=== PATIENT | male | born 1970 | race Caucasian/White ===

== ENCOUNTER → 2016-06-30 | Outpatient (CLI) | payer BC ==
[~2016-06-30] MED LIST: ACET-1256 PO; CETI10TA84 PO; DICY20TA35 PO; DIPH-437 PO; DOCU1TAB6 PO; LORA-741 PO; MAGN400T6 PO; OMEP40CA41 PO; ONDA8TAB12 PO; PROC1TAB5 PO; SIMV10TA2 PO; TADA5TAB11 PO
[2016-06-30 10:45] LABS: ALT/SGPT 45 U/L (12-78); BLOOD UREA NITROGEN 18 mg/dl (7-18); CALCIUM 9.6 mg/dl (8.5-10.1); CARBON DIOXIDE 27 mmol/L (21-32); CHLORIDE 105 mmol/L (98-107); CHOLESTEROL 208 mg/dl (0-200); GLUCOSE 97 mg/dl (70-99); POTASSIUM 4.5 mmol/L (3.5-5.1); SODIUM 143 mmol/L (136-145)
[2016-06-30 10:48] LABS: ALB/GLOB RATIO 1.4 (0.9-2); ALKALINE PHOSPHATASE 77 U/L (45-117); AST/SGOT 34 U/L (15-37); CHOLESTEROL/HDL RATIO 5.8; HDL CHOLESTEROL 36 mg/dl; LDL CHOLESTEROL CALCULATED 124 mg/dl; TRIGLYCERIDES 240 mg/dl (0-150); VERY LOW DENSITY LIPOPROT CALC 48 mg/dl
== END | disposition home or self-care (01) ==
LOC: C.LAB 09:15
PROVIDERS: ATTEND Nurse Practitioner Family
DX: E78.5 Hyperlipidemia, unspecified (principal)

== ENCOUNTER → 2016-08-29 | Outpatient (CLI) | payer BC ==
--- NOTE | 2016-08-29 12:20 | DIAGNOSTIC IMAGING REPORT ---
ABDOMEN AND PELVIS CT WITH IV AND ORAL CONTRAST CT DOSE: 839.40 mGy.cm HISTORY: Testicular carcinoma TESTICULAR CANCER TECHNIQUE: Multiaxial CT images of the abdomen and pelvis were performed following the use of intravenous and oral contrast. COMPARISON STUDY: 06/07/2016 FINDINGS: Lung bases remain clear. Liver remains uniform. Gallstones are again noted to be present within the gallbladder lumen and a clinically region of the cystic duct. Pancreas is uniform throughout. Spleen is uniform. Kidneys demonstrate several small cortical cysts bilaterally. These are unchanged. No significant adenopathy within the abdominal pelvic or inguinal regions. Mild rectal fecal impaction. Mild increase in colonic fecal load primarily within the sigmoid. Several small nodes are present these are now considered clinically significant and are unchanged. Survey evaluation of the osseous structures shows a small cortical bone cyst anterior margin of the right femoral neck. This is unchanged from the prior study. IMPRESSION: 1. No acute process of the abdomen or pelvis. 2. No evidence for metastatic disease. 3. No change from the prior study. 4. Gallstones. 5. In several note is made of increased fecal load within the sigmoid colon and rectum Electronically signed by: Roberto Lauren M.D. 08/29/2016 12:19 PM Dictated Date/Time: 08/29/2016 12:14 PM
--- NOTE | 2016-08-29 12:28 | DIAGNOSTIC IMAGING REPORT ---
CHEST CT WITH CONTRAST CT DOSE: HISTORY: TESTICULAR CANCER TECHNIQUE: Multiaxial CT images of the chest were performed following the intravenous administration of contrast. COMPARISON: Chest CT 06/07/2016. FINDINGS: The central airways are patent. No pleural effusions. No pneumothorax. Stable 6 mm subpleural nodule abutting the right minor fissure on image 35. This is likely benign. No new or suspicious pulmonary nodules identified. No focal lung consolidations. No suspicious lytic or blastic osseous lesions. Cholelithiasis. No hepatic or splenic masses. Normal adrenal glands. No mediastinal hilar lymphadenopathy. IMPRESSION: No change from the prior study. No evidence for metastatic disease within the chest. Electronically signed by: Rosendo Thornton M.D. 08/29/2016 12:26 PM Dictated Date/Time: 08/29/2016 12:23 PM
--- NOTE | 2016-08-29 13:02 | DIAGNOSTIC IMAGING REPORT ---
TESTICULAR ULTRASOUND HISTORY: Testicular carcinoma TESTICULAR CANCER COMPARISON: 10/29/2015 FINDINGS: Right testis: Surgically absent Left testis: Maximum dimension 3.7 cm. Several testicular calcifications unchanged. Normal vascular flow. Stable left-sided varicocele. IMPRESSION: Stable evaluation of the left testis. Stable left-sided varicocele. Surgically absent right testis Electronically signed by: Roberto Lauren M.D. 08/29/2016 1:01 PM Dictated Date/Time: 08/29/2016 12:46 PM
== END | disposition home or self-care (01) ==
LOC: C.CTS 11:50
PROVIDERS: ATTEND Nurse Practitioner
DX: C82.11 Follicular lymphoma grade II, lymph nodes of head, face, and neck (principal); K80.20 Calculus of gallbladder without cholecystitis without obstruction; I86.1 Scrotal varices; Z90.79 Acquired absence of other genital organ(s)

== ENCOUNTER → 2016-11-22 | Outpatient (CLI) | payer BC ==
[2016-11-22 13:36] LABS: ALT/SGPT 43 U/L (12-78); AMYLASE 64 U/L (25-115); AST/SGOT 19 U/L (15-37); BLOOD UREA NITROGEN 11 mg/dl (7-18); BUN/CREATININE RATIO 12.3 (10-20); CALCIUM 9.1 mg/dl (8.5-10.1); CARBON DIOXIDE 29 mmol/L (21-32); CHLORIDE 107 mmol/L (98-107); CREATININE 0.91 mg/dl (0.60-1.40); GLUCOSE 89 mg/dl (70-99); POTASSIUM 3.9 mmol/L (3.5-5.1); SODIUM 142 mmol/L (136-145)
[2016-11-22 13:39] LABS: ALB/GLOB RATIO 1.2 (0.9-2); ALKALINE PHOSPHATASE 81 U/L (45-117)
== END | disposition home or self-care (01) ==
LOC: C.LAB 11:22
PROVIDERS: ATTEND Nurse Practitioner Family
DX: R10.9 Unspecified abdominal pain (principal)

== ENCOUNTER → 2016-12-21 | Day surgery (SDC) | payer BC ==
[2016-12-14 12:59] VITALS: BMI 27.0
[~2016-12-21] VITALS: Ht 182.9 cm; Wt 90.9 kg
[~2016-12-21] MED LIST changes: -DOCU1TAB6 PO; +LIDOCAINE HCL 2% 2 ML VIAL (20MG/ML) ONE; -LORA-741 PO; -ONDA8TAB12 PO; -PROC1TAB5 PO; +PROPOFOL IV EMULSION 10 MG/ML 20 ML VIAL IV ONE; +SODIUM CHLORIDE 0.9% 500ML 500 ML IV ONE
[2016-12-21 12:23] VITALS: Ht 182.9 cm; Wt 90.9 kg
--- NOTE | 2016-12-21 13:09 | Endo History and Physical ---
History & Physical Date of Service: Dec 21, 2016. Chief Complaint: ABDOMINAL PAIN Referring Physician: JAYCEE MESSINA NP History of Present Illness 46 yo CM who presents for colonoscopy secondary to abdominal pain. Past Surgical History Hx Cardiac Surgery: No Hx Internal Defibrillator: No Hx Pacemaker: No Hx Abdominal Surgery: No Hx of Implantable Prosthesis: No Hx Post-Op Nausea and Vomiting: No Hx Cancer Surgery: Yes (ORCHIECTOMY) Hx Thoracic Surgery: No Hx Orthopedic: No Hx Urinary Tract Surgery: No Family History None Social History Smoking Status: Never Smoker Hx Substance Use: No Hx Alcohol Use: Yes (NOT RECENTLY D/T DIGESTIVE PROBLEMS, VERY RARELY) Allergies Coded Allergies: Dairy (Verified Allergy, Intermediate, DIGESTIVE ISSUES, 12/21/16) NO KNOWN DRUG ALLERGIES (Verified Allergy, Unknown, ., 12/14/16) Current Medications Reported Home Medications Medications Dose Route/Sig Max Daily Dose Days Date Category Mag-Ox (Magnesium Oxide) 400 Mg Tab 400 Mg PO DAILY 12/21/16 Reported Zyrtec (Cetirizine HCl) 10 Mg Tab 10 Mg PO DAILY PRN 12/14/16 Reported Zocor (Simvastatin) 10 Mg Tab 10 Mg PO QPM 12/14/16 Reported Prilosec (Omeprazole) 40 Mg Cap 40 Mg PO QAM 12/14/16 Reported Cialis (Tadalafil) 5 Mg Tab 5 Mg PO UD PRN 12/28/12 Reported Bentyl (Dicyclomine Hcl) 20 Mg Tab 20 Mg PO QID PRN 01/10/12 Reported Vital Signs Weight (Kilograms): 90.91 Height (Feet): 6 Height (Inches): 0 Date Time Temp Pulse Resp B/P (MAP) Pulse Ox O2 Delivery O2 Flow Rate FiO2 12/21/16 12:22 36.8 83 20 131/74 (93) 96 Room Air Physical Exam General Appearance: WD/WN, no apparent distress Respiratory/Chest: Auscultation: breath sounds normal Cardiovascular: Heart Auscultation: RRR Abdomen: Bowel Sounds: normal Inspection & Palpation: soft, non-distended, no tenderness, guarding & rebound Assessment and Plan Assessment: 46 yo CM who presents for colonoscopy secondary to abdominal pain. Plan: Proceed with colonoscopy.
--- NOTE | 2016-12-21 13:44 | Discharge Instructions ---
Endoscopy Patient Instructions Date / Procedure(s) Performed Dec 21, 2016. Colonoscopy Allergy Information Coded Allergies: Dairy (Verified Allergy, Intermediate, DIGESTIVE ISSUES, 12/21/16) NO KNOWN DRUG ALLERGIES (Verified Allergy, Unknown, ., 12/14/16) Discharge Date / Findings Dec 21, 2016. Internal hemorrhoids Random colon biopsies Medication Instructions OK to resume all medications today as prescribed Reported Home Medications Medications Dose Route/Sig Max Daily Dose Days Date Category Mag-Ox (Magnesium Oxide) 400 Mg Tab 400 Mg PO DAILY 12/21/16 Reported Zyrtec (Cetirizine HCl) 10 Mg Tab 10 Mg PO DAILY PRN 12/14/16 Reported Zocor (Simvastatin) 10 Mg Tab 10 Mg PO QPM 12/14/16 Reported Prilosec (Omeprazole) 40 Mg Cap 40 Mg PO QAM 12/14/16 Reported Cialis (Tadalafil) 5 Mg Tab 5 Mg PO UD PRN 12/28/12 Reported Bentyl (Dicyclomine Hcl) 20 Mg Tab 20 Mg PO QID PRN 01/10/12 Reported Provider Instructions Activity Restrictions - No exercising or heavy lifting for 24 hours. - Do not drink alcohol the day of the procedure. - Do not drive a car or operate machinery until the day after the procedure. - Do not make any important decisions or sign important papers in 24 hours after the procedure. Following Day: - Return to full activity which may include returning to work/school. Diet Start your diet with liquids and light foods (jello, soup, juice, toast). Then eat your usual diet if not nauseated. Treatment For Common After Affects For mild abdominal pain, bloating, or excessive gas: - Rest - Eat lightly - Lie on right side Follow-Up Information Follow-up with JAYCEE MESSINA NP as scheduled Anesthesia Information What You Should Know You have had a procedure that required some medicine to reduce anxiety and discomfort. This treatment is called moderate sedation. After receiving the treatment, you may be sleepy, but you will be able to breathe on your own. The effects of the treatment may last for several hours. Follow these instructions along with Activity/Diet recommendations noted above: * Do NOT do anything where dizziness or clumsiness would be dangerous. * Rest quietly at home today, then you can be up and about tomorrow. * Have a responsible person stay with you the rest of today. * You may have had an I.V. today. If so, you may take the dressing off later today. Recommendations Call your doctor if: * Trouble breathing * Continuous vomiting for more than 24 hours * Temperature above 101 degrees * Severe abdominal pain or bloating * Pain not relieved by pain medicine ordered * There is increased drainage or redness from any incision * A large amount of rectal bleeding greater than 2-3 tablespoons. (If you had a polyp/s removed or have hemorrhoids, a small amount of blood - from the rectum is to be expected.) * You have any unanswered questions or concerns. IN THE EVENT OF A SERIOUS EMERGENCY, GO TO THE NEAREST EMERGENCY ROOM Your discharge instructions were prepared by provider James Echols. Patient Instructions Signature Page Kingston Suarez Patient (or Guardian) Signature/Date: I have read and understand the instructions given to me by my caregivers. Caregiver/RN/Doctor Signature/Date: The above-named patient and/or guardian has received patient instructions on this date. + Original Patient Signature Page (only) stays with chart. Please make copy for patient.
--- NOTE | 2016-12-21 13:49 | GI REPORT ---
Procedure Date: 12/21/2016 1:09 PM Procedure: Colonoscopy Indications: Generalized abdominal pain Medicines: Sedation Required Anesthesia Staff Assistance, Monitored Anesthesia Care Complications: No immediate complications. Estimated Blood Loss: Estimated blood loss: none. Procedure: Pre-Anesthesia Assessment: - Prior to the procedure, a History and Physical was performed, and patient medications and allergies were reviewed. The patient's tolerance of previous anesthesia was also reviewed. The risks and benefits of the procedure and the sedation options and risks were discussed with the patient. All questions were answered, and informed consent was obtained. Prior Anticoagulants: The patient has taken no previous anticoagulant or antiplatelet agents. ASA Grade Assessment: II - A patient with mild systemic disease. After reviewing the risks and benefits, the patient was deemed in satisfactory condition to undergo the procedure. After I obtained informed consent, the scope was passed under direct vision. Throughout the procedure, the patient's blood pressure, pulse, and oxygen saturations were monitored continuously. The On-site loaner was introduced through the anus and advanced to the terminal ileum. The colonoscopy was performed without difficulty. The patient tolerated the procedure well. The quality of the bowel preparation was good. The terminal ileum, ileocecal valve, appendiceal orifice, and rectum were photographed. Findings: Non-bleeding internal hemorrhoids were found during retroflexion. The hemorrhoids were small. Several random biopsies were obtained with cold forceps for histology in the entire colon. Impression: - Non-bleeding internal hemorrhoids. - Several random biopsies were obtained in the entire colon. Recommendation: - Resume previous diet. - Continue present medications. - Repeat colonoscopy for surveillance based on pathology results. - Return to primary care physician as previously scheduled. James Echols DO 12/21/2016 1:49:33 PM This report has been signed electronically. Note Initiated On: 12/21/2016 1:09 PM I attest to the content of the Intraoperative Record and orders documented therein, exceptions below
--- NOTE | 2016-12-21 14:09 | Anesthesiology Progress Note ---
Anesthesia Post Op Note Date & Time Dec 21, 2016 at 14:08 Vital Signs Pain Intensity: 0 Vital Signs Past 12 Hours Date Time Temp Pulse Resp B/P (MAP) Pulse Ox O2 Delivery O2 Flow Rate FiO2 12/21/16 14:00 66 20 98/61 (73) 99 Room Air 12/21/16 13:53 103/63 (76) 12/21/16 13:45 74 20 99/60 (73) 96 Room Air 12/21/16 12:22 36.8 83 20 131/74 (93) 96 Room Air Notes Mental Status: alert / awake / arousable, participated in evaluation Pt Amnestic to Procedure: Yes Nausea / Vomiting: adequately controlled Pain: adequately controlled Airway Patency, RR, SpO2: stable & adequate BP & HR: stable & adequate Hydration State: stable & adequate Anesthetic Complications: no major complications apparent
[2016-12-21 14:25] VITALS: BP 110/77; PULSE 61; O2SAT 98
== END | disposition home or self-care (01) ==
LOC: C.GI 12:04
PROVIDERS: ATTEND Internal Medicine
DX: R10.84 Generalized abdominal pain (principal); K64.8 Other hemorrhoids; Z79.899 Other long term (current) drug therapy

== ENCOUNTER 2017-01-28 17:23 | Inpatient (IN) | payer BC ==
[~2017-01-28] VITALS: Ht 182.9 cm; Wt 88.9 kg
[~2017-01-28 17:23] MED LIST changes: -ACET-1256 PO; -CETI10TA84 PO; -DICY20TA35 PO; -DIPH-437 PO; -LIDOCAINE HCL 2% 2 ML VIAL (20MG/ML) ONE; -OMEP40CA41 PO; -PROPOFOL IV EMULSION 10 MG/ML 20 ML VIAL IV ONE; -SIMV10TA2 PO; -SODIUM CHLORIDE 0.9% 500ML 500 ML IV ONE
[2017-01-28] MEDS ORDERED: GI COCKTAIL PO STA (17:52)
[2017-01-28] MEDS ORDERED: ONDANSETRON INJ 2 MG/ML 2 ML VIAL IV STA (17:52)
[2017-01-28] MEDS ORDERED: SODIUM CHLORIDE 0.9% 1000ML 1,000 ML IV STA (17:52)
[2017-01-28] MEDS ORDERED: LIDOCAINE HCL 2% VISC SOLN 20 ML UDC ONE (18:12)
[2017-01-28] MEDS ORDERED: ALUMINUM/MAGNESIUM SUSP 30 ML UDC ONE (18:12)
[2017-01-28 18:15] LABS: BASO % 0.3 %; BASO ABS # 0.01 K/uL (0-0.2); COMPLETE YES; HEMATOCRIT 41.6 % (42-52); LYMPH % 37.1 %; LYMPH ABS # 1.31 K/uL (1.2-3.4); MEAN CELL VOLUME 92.4 fL (80-100); MEAN CORPUSCULAR HEMOGLOBIN 33.8 pg (25-34); MEAN CORPUSCULAR HGB CONC 36.5 g/dl (32-36); MEAN PLATELET VOLUME 9.5 fL (7.4-10.4); MONO % 5.4 %; NEUT % 55.2 %; PLATELET COUNT 167 K/uL (130-400); WHITE BLOOD COUNT 3.53 K/uL (4.8-10.8)
[2017-01-28 18:37] LABS: BUN/CREATININE RATIO 5.7 (10-20); CALCIUM 9.5 mg/dl (8.5-10.1); POTASSIUM 3.7 mmol/L (3.5-5.1)
[2017-01-28 18:46] LABS: URINE APPEARANCE CLEAR (CLEAR); URINE EPITHELIAL CELL AUTO 0-5 /lpf (0-5); URINE NITRITE POS (NEG); URINE PH 7.5 (4.5-7.5); URINE SPECIFIC GRAVITY 1.016 (1.000-1.030); UROBILINOGEN NEG (NEG)
[2017-01-28 18:47] LABS: MANUAL MICROSCOPIC REQUIRED? NO; URINE BILIRUBIN 3+ (NEG); URINE COLOR AMBER
[2017-01-28 18:49] LABS: REVIEW REQ? YES
[2017-01-28 18:57] LABS: ZZUR CULT IF INDIC CLEAN CATCH YES
[2017-01-28] MEDS ORDERED: MoRPHine SULFATE 4 MG/ML 1 ML CARP\\VIAL IV STA (19:07)
--- NOTE | 2017-01-28 20:12 | DIAGNOSTIC IMAGING REPORT ---
ABDOMINAL ULTRASOUND, RIGHT UPPER QUADRANT HISTORY: Acute elevation of liver function tests. Abdominal distress. History of testicular cancer. COMPARISON: CT of the abdomen and pelvis August 29, 2016. FINDINGS: Liver is sonographically normal. There is mild dilatation of the common bile duct which measures approximately 1 cm in caliber. There is a possible 5 mm stone within the common bile duct. There are numerous gallstones within the gallbladder. There is no gallbladder wall thickening. A stone within the gallbladder neck is noted. No pericholecystic fluid is present. The pancreas is largely obscured by overlying bowel gas. There is no right hydronephrosis. IMPRESSION: 1. Cholelithiasis. No gallbladder wall thickening. 2. Mild dilatation of the common bile duct which measures 1 cm in caliber. Possible 5 mm common bile duct calculus. 3. Largely obscured pancreas. Electronically signed by: Sherif Corcoran M.D. 01/28/2017 8:11 PM Dictated Date/Time: 01/28/2017 8:07 PM
[2017-01-28] MEDS ORDERED: OPTIRAY 320 IV PRN (20:30)
[2017-01-28 20:43] LABS: VEN BLD GAS O2 SATURATION < 60.0 %; VEN BLOOD GAS BASE EXCESS -1.8 mEq/L; VENOUS BLOOD GAS PCO2 51 mmHg (38.0-50.0); VENOUS BLOOD GAS PO2 27 mmHg
--- NOTE | 2017-01-28 20:52 | DIAGNOSTIC IMAGING REPORT ---
CT OF THE ABDOMEN AND PELVIS WITH CONTRAST CLINICAL HISTORY: Abdominal pain, elevated liver function tests. History of testicular cancer. COMPARISON STUDY: CT of the abdomen and pelvis August 29, 2016 and biliary ultrasound performed earlier today. TECHNIQUE: Following IV administration of 116 mL of Optiray-320, axial images of the abdomen and pelvis were obtained from the lung bases to the proximal femurs. Images were reviewed in the axial, sagittal, and coronal planes. IV contrast was administered without complication. A dose lowering technique was utilized adhering to the principles of ALARA. CT DOSE: 459.33 mGy.cm FINDINGS: Visualized portions of lower chest demonstrate left lower lobe opacity which favors atelectasis. There is mild intra and extrahepatic biliary ductal dilatation. There several partially calcified common bile duct calculi. These are suboptimally assessed by CT but measure up to approximately 5 mm. There are multiple gallstones within the gallbladder and the gallbladder neck with possible stones within the cystic duct. There is mild pericholecystic infiltration. The spleen, adrenal glands are unremarkable. There is no peripancreatic infiltration. There are numerous subcentimeter bilateral renal lesions which are too small to characterize but are unchanged. There is no evidence for a bowel obstruction. No enlarged lymph nodes are identified. There are findings consistent with a previous right orchiectomy. IMPRESSION: 1. Mild intra and extrahepatic biliary ductal dilatation with multiple common bile duct calculi. These are suboptimally assessed by CT but measure up to approximately 5 mm. 2. Cholelithiasis, including gallstones within the gallbladder neck. Mild pericholecystic infiltration. This may reflect acute cholecystitis. 3. No evidence of recurrent malignancy status post right orchiectomy. Electronically signed by: Sherif Corcoran M.D. 01/28/2017 8:51 PM Dictated Date/Time: 01/28/2017 8:39 PM
[2017-01-28] MEDS ORDERED: CIPROFLOXACIN 400MG / 200ML D5W IV STA (20:58)
[2017-01-28] MEDS ORDERED: ALUMINUM/MAGNESIUM/SIMETH (MAALOX MAX) 30 ML UDC PO PRN (21:30)
[2017-01-28] MEDS ORDERED: ACETAMINOPHEN 325 MG TAB PO PRN (21:30)
[2017-01-28] MEDS ORDERED: ONDANSETRON INJ 2 MG/ML 2 ML VIAL IV PRN (21:30)
[2017-01-28] MEDS ORDERED: POLYETHYLENE (MIRALAX) 17 GM PACK PO PRN (21:30)
[2017-01-28] MEDS ORDERED: MAGNESIUM HYDROXIDE SUSP 30 ML UDC PO PRN (21:30)
--- NOTE | 2017-01-28 21:46 | EMERGENCY ROOM VISIT NOTE ---
History Report prepared by Yg: Chika De La Vega Under the Supervision of: Dr. Floyd Garces M.D. First contact with patient: 17:32 Chief Complaint: GI ASSESSMENT Stated Complaint: ABD DISTRESS Nursing Triage Summary: pt c/o abdominal pain for past couple days. pt also c/o nausea. denies vomiting or diarrhea. pt states he had recurring testicular cancer and questionabe cancer in stomach. pt had chemo treatment patient had repeat colonoscopy last month. patient c/o on an off abdominal pains for past couple months and was told if he has increased abdominal pain attack to come to ER. History of Present Illness The patient is a 46 year old white male with a past medical history of testicular cancer, seminoma who presents to the ED with a cc of intermittent burning abdominal pain beginning 5 days ago. Pain worsens with lying flat and on his side. Positive nausea, dizziness, difficulty focusing eyes, decreased appetite, dark urine, loose stool. Negative sore throat, congestion, cough, testicular pain, penile pain, discharge, hematochezia. Last BM was this morning. Denies recent travel or antibiotic use. Denies falls, trauma, or sick contacts. Pt denies tobacco or drug use. Source of History: patient Onset: 5 days ago Position: abdomen Quality: burning Timing: intermittent Modifying Factors (Worsening): other (lying flat) Associated Symptoms: + nausea, No sorethroat, No cough, No hematochezia Note: Pt reports dizziness, difficulty focusing eyes, decreased appetite, dark urine, loose stool. Pt denies congestion, testicular pain, penile pain, discharge. Review of Systems See HPI for pertinent positives and negatives. A total of ten systems were reviewed and were otherwise negative. Past Medical & Surgical Medical Problems: (1) Anemia (2) Choledocholithiasis with obstruction (3) Elevated transaminase level (4) RUQ pain (5) Testis cancer Family History FH: cancer FH: diabetes mellitus FHx: heart disease FHx: seizures Social History Smoking Status: Never Smoker Marital Status: Occupation Status: employed Current/Historical Medications Scheduled Dicyclomine Hcl (Bentyl), 20 MG PO QID PRN Magnesium Oxide (Mag-Ox), 400 MG PO DAILY Omeprazole (Prilosec), 40 MG PO QAM Simvastatin (Zocor), 10 MG PO QPM Scheduled PRN Cetirizine (Zyrtec), 10 MG PO DAILY PRN for PRN Tadalafil (Cialis), 5 MG PO UD PRN for ED Allergies Coded Allergies: Dairy (Verified Allergy, Intermediate, DIGESTIVE ISSUES, 12/21/16) NO KNOWN DRUG ALLERGIES (Verified Allergy, Unknown, ., 12/14/16) Physical Exam Vital Signs Date Time Temp Pulse Resp B/P (MAP) Pulse Ox O2 Delivery O2 Flow Rate FiO2 01/28/17 20:32 75 12 120/72 96 Room Air 01/28/17 19:10 67 01/28/17 18:50 72 18 119/76 100 01/28/17 17:27 36.6 87 20 109/77 95 Room Air Physical Exam GENERAL: Awake, alert, well-appearing, NAD HENT: Normocephalic, atraumatic. EYES: Normal conjunctiva. Scleral icterus. NECK: Supple. No nuchal rigidity. FROM. RESPIRATORY: CTAB, no rhonchi, wheezing, crackles CARDIAC: RRR, no MRG ABDOMEN: Soft, mild umbilical RLQ suprapubic TTP, positive obturators. : No penile, scrotal pain or swelling. MSK: No chest wall TTP, no LE edema, no CVA TTP NEURO: GCS 15, CN 2-12 intact, moves all 4s on command SKIN: Jaundiced. No rash. Medical Decision & Procedures ER Provider Diagnostic Interpretation: Radiology results as stated below per my review and radiologist interpretation: ABDOMINAL ULTRASOUND, RIGHT UPPER QUADRANT HISTORY: Acute elevation of liver function tests. Abdominal distress. History of testicular cancer. COMPARISON: CT of the abdomen and pelvis August 29, 2016. FINDINGS: Liver is sonographically normal. There is mild dilatation of the common bile duct which measures approximately 1 cm in caliber. There is a possible 5 mm stone within the common bile duct. There are numerous gallstones within the gallbladder. There is no gallbladder wall thickening. A stone within the gallbladder neck is noted. No pericholecystic fluid is present. The pancreas is largely obscured by overlying bowel gas. There is no right hydronephrosis. IMPRESSION: 1. Cholelithiasis. No gallbladder wall thickening. 2. Mild dilatation of the common bile duct which measures 1 cm in caliber. Possible 5 mm common bile duct calculus. 3. Largely obscured pancreas. Electronically signed by: Sherif Corcoran M.D. 01/28/2017 8:11 PM Dictated Date/Time: 01/28/2017 8:[address] OF THE ABDOMEN AND PELVIS WITH CONTRAST CLINICAL HISTORY: Abdominal pain, elevated liver function tests. History of testicular cancer. COMPARISON STUDY: CT of the abdomen and pelvis August 29, 2016 and biliary ultrasound performed earlier today. TECHNIQUE: Following IV administration of 116 mL of Optiray-320, axial images of the abdomen and pelvis were obtained from the lung bases to the proximal femurs. Images were reviewed in the axial, sagittal, and coronal planes. IV contrast was administered without complication. A dose lowering technique was utilized adhering to the principles of ALARA. CT DOSE: 459.33 mGy.cm FINDINGS: Visualized portions of lower chest demonstrate left lower lobe opacity which favors atelectasis. There is mild intra and extrahepatic biliary ductal dilatation. There several partially calcified common bile duct calculi. These are suboptimally assessed by CT but measure up to approximately 5 mm. There are multiple gallstones within the gallbladder and the gallbladder neck with possible stones within the cystic duct. There is mild pericholecystic infiltration. The spleen, adrenal glands are unremarkable. There is no peripancreatic infiltration. There are numerous subcentimeter bilateral renal lesions which are too small to characterize but are unchanged. There is no evidence for a bowel obstruction. No enlarged lymph nodes are identified. There are findings consistent with a previous right orchiectomy. IMPRESSION: 1. Mild intra and extrahepatic biliary ductal dilatation with multiple common bile duct calculi. These are suboptimally assessed by CT but measure up to approximately 5 mm. 2. Cholelithiasis, including gallstones within the gallbladder neck. Mild pericholecystic infiltration. This may reflect acute cholecystitis. 3. No evidence of recurrent malignancy status post right orchiectomy. Electronically signed by: Sherif Corcoran M.D. 01/28/2017 8:51 PM Dictated Date/Time: 01/28/2017 8:39 PM Laboratory Results 01/28/17 18:05 Red Blood Count 4.50, Mean Corpuscular Volume 92.4, Mean Corpuscular Hemoglobin 33.8, Mean Corpuscular Hemoglobin Concent 36.5, Mean Platelet Volume 9.5, Neutrophils (%) (Auto) 55.2, Lymphocytes (%) (Auto) 37.1, Monocytes (%) (Auto) 5.4, Eosinophils (%) (Auto) 2.0, Basophils (%) (Auto) 0.3, Neutrophils # (Auto) 1.95, Lymphocytes # (Auto) 1.31, Monocytes # (Auto) 0.19, Eosinophils # (Auto) 0.07, Basophils # (Auto) 0.01 01/28/17 18:05 Test 01/28/17 18:05 01/28/17 18:25 01/28/17 20:21 01/28/17 20:29 White Blood Count 3.53 K/uL (4.8-10.8) Red Blood Count 4.50 M/uL (4.7-6.1) Hemoglobin 15.2 g/dL (14.0-18.0) Hematocrit 41.6 % (42-52) Mean Corpuscular Volume 92.4 fL (80-100) Mean Corpuscular Hemoglobin 33.8 pg (25-34) Mean Corpuscular Hemoglobin Concent 36.5 g/dl (32-36) Platelet Count 167 K/uL (130-400) Mean Platelet Volume 9.5 fL (7.4-10.4) Neutrophils (%) (Auto) 55.2 % Lymphocytes (%) (Auto) 37.1 % Monocytes (%) (Auto) 5.4 % Eosinophils (%) (Auto) 2.0 % Basophils (%) (Auto) 0.3 % Neutrophils # (Auto) 1.95 K/uL (1.4-6.5) Lymphocytes # (Auto) 1.31 K/uL (1.2-3.4) Monocytes # (Auto) 0.19 K/uL (0.11-0.59) Eosinophils # (Auto) 0.07 K/uL (0-0.5) Basophils # (Auto) 0.01 K/uL (0-0.2) RDW Standard Deviation 47.1 fL (36.4-46.3) RDW Coefficient of Variation 13.9 % (11.5-14.5) Immature Granulocyte % (Auto) 0.0 % Immature Granulocyte # (Auto) 0.00 K/uL (0.00-0.02) Anion Gap 5.0 mmol/L (3-11) Est Creatinine Clear Calc Drug Dose 99.2 ml/min Estimated GFR () 102.7 Estimated GFR (Non- 88.6 BUN/Creatinine Ratio 5.7 (10-20) Calcium Level 9.5 mg/dl (8.5-10.1) Total Bilirubin 6.7 mg/dl (0.2-1) Direct Bilirubin 5.3 mg/dl (0-0.2) Aspartate Amino Transf (AST/SGOT) 171 U/L (15-37) Alanine Aminotransferase (ALT/SGPT) 427 U/L (12-78) Alkaline Phosphatase 463 U/L (45-117) Total Protein 7.8 gm/dl (6.4-8.2) Albumin 4.1 gm/dl (3.4-5.0) Lipase 293 U/L (73-393) Urine Color GRADY Urine Appearance CLEAR (CLEAR) Urine pH 7.5 (4.5-7.5) Urine Specific Sparks 1.016 (1.000-1.030) Urine Protein NEG (NEG) Urine Glucose (UA) NEG (NEG) Urine Ketones NEG (NEG) Urine Occult Blood NEG (NEG) Urine Nitrite POS (NEG) Urine Bilirubin 3+ (NEG) Urine Urobilinogen NEG (NEG) Urine Leukocyte Esterase TRACE (NEG) Urine WBC (Auto) 1-5 /hpf (0-5) Urine RBC (Auto) 0-4 /hpf (0-4) Urine Hyaline Casts (Auto) 0 /lpf (0-5) Urine Epithelial Cells (Auto) 0-5 /lpf (0-5) Urine Bacteria (Auto) 1+ (NEG) Venous Blood pH 7.31 (7.36-7.41) Venous Blood Partial Pressure CO2 51 mmHg (38.0-50.0) Venous Blood Partial Pressure O2 27 mmHg Venous Blood HCO3 25 mmol/L Venous Blood Oxygen Saturation < 60.0 % Venous Blood Base Excess -1.8 mEq/L Bedside Lactic Acid Venous 0.62 mmol/L (0.90-1.70) Laboratory results reviewed by me Medications Administered Medications (Trade) Dose Ordered Sig/Tyson Route Start Time Stop Time Status Last Admin Dose Admin Ondansetron HCl (Zofran Inj) 4 mg NOW STAT IV 01/28/17 17:52 01/28/17 17:54 DC 01/28/17 18:17 4 MG Miscellaneous Medication (Gi Cocktail) 24 ml ONE STAT PO 01/28/17 17:52 01/28/17 17:54 DC 01/28/17 17:52 24 ML Sodium Chloride 1,000 ml @ 999 mls/hr Q1H1M STAT IV 01/28/17 17:52 01/28/17 18:52 DC 01/28/17 18:17 999 MLS/HR Morphine Sulfate (MoRPHine SULFATE INJ) 4 mg NOW STAT IV 01/28/17 19:07 01/28/17 19:08 DC 01/28/17 19:16 4 MG Ciprofloxacin/ Dextrose (Cipro / D5W) 400 mg NOW STAT IV 01/28/17 20:58 01/28/17 21:13 DC 01/28/17 21:17 400 MG ED Course 1738: The patient was evaluated in room B3B. A complete history and physical exam was performed. 2030: Upon reexamination, the patient was resting comfortably. I discussed the test results and treatment plan with him. The patient will be evaluated for further management. 3: I discussed the patient's case with Dr. Gr, [facility] hospitalist. The patient will be evaluated for further treatment and disposition. 2147: I discussed the patient's case with Dr. Buckley, [facility] gastrology. Medical Decision The patient is a 46 year old white male with a past medical history of testicular cancer, seminoma who presents to the ED with a cc of intermittent burning abdominal pain beginning 5 days ago. Triage Nursing notes reviewed. The patient's presentation and history were concerning for PUD, gastritis, enteritis, UTI, appendicitis. Patient was examined at the bedside. Given the patient's scleral icterus and jaundice in addition to prior history of testicular cancer additional workup was made beyond just lab work. Patient an ultrasound given his elevated bilirubin and LFTs. Patient did not have an elevated white count fever and was not altered. Less less likely ascending cholangitis. No antibodies were given at this time. Patient did have a right upper quadrant ultrasound was completed which did show he had cholelithiasis as well as likely choledocholithiasis with a dilated CBD at 5 mm. I spoke with the medicine service who agreed with the patient would benefit from additional treatment as an inpatient. Also consulted the on-call natural resources engineer was informed of the patient and that he may benefit from an ERCP and/or other diagnostics or management further recommendations. Patient was admitted to the medicine service. Medication Reconcilliation Current Medication List: was personally reviewed by me Blood Pressure Screening Patient's blood pressure: Normal blood pressure Blood pressure disposition: Did not require urgent referral Consults Time Called: 2038 Consulting Physician: Dr. Gr [facility] hospitalist Returned Call: [phone] Discussed the patient's case. The patient will be evaluated for further treatment and disposition. Additional Consults: Time Called: 2134 Consulted Physician: Dr. Buckley [facility] gastrology. Returned Call: [phone] Additional Comments: Discussed the patient's case. Impression Primary Impression: Choledocholithiasis with obstruction Additional Impressions: Cholelithiasis Hyperbilirubinemia Jaundice Abdominal pain Nausea Scribe Attestation The scribe's documentation has been prepared under my direction and personally reviewed by me in its entirety. I confirm that the note above accurately reflects all work, treatment, procedures, and medical decision making performed by me. Departure Information Dispostion Being Evaluated By Hospitalist Referrals Rene Benton III, CRNP (PCP) Patient Instructions My [facility] Problem Qualifiers Primary Impression: Choledocholithiasis with obstruction Cholecystitis presence: without cholecystitis Qualified Codes: K80.51 - Calculus of bile duct without cholangitis or cholecystitis with obstruction Additional Impressions: Cholelithiasis Cholelithiasis location: gallbladder and bile duct Cholecystitis presence: without cholecystitis Biliary obstruction: with biliary obstruction Qualified Codes: K80.71 - Calculus of gallbladder and bile duct without cholecystitis with obstruction Abdominal pain Abdominal location: periumbilical Qualified Codes: R10.33 - Periumbilical pain
--- NOTE | 2017-01-28 21:56 | History and Physical ---
History & Physical Date & Time of Service: Jan 28, 2017 at 21:38 Chief Complaint: Abd Distress Primary Care Physician: Rene Benton III, CRNP History of Present Illness Source: patient Patient presents today with recurrent abdominal pain since August 2016. He states that he has abdominal pain that comes in day-long waves. Comes every 7-10 days and describes it as an attack. The pain is a central abdominal pain above the abdomen and occasionally in the suprapubic area. The pain is unpredictable in relation to meals. The patient thinks that fatty foods possibility make it worse. He has been avoiding alcohol and caffeine but still gets the pain. Notes that he came in today, but his symptoms this time have been persistent for the past 4 days. He also states that he has a very poor appetite. He also felt dizzy today and much more fatigued. He complains of nausea without vomiting. He denies constipation. He has had normal bowel movements. No major weight changes recently Urinating without difficulty. He denies fevers, chills or sweats. Colonoscopy 5 weeks ago at [facility] which he states was negative. He denies chest pain, shortness of breath, cough or wheezing Past Medical/Surgical History Medical Problems: (1) Anemia Status: Chronic (2) Testis cancer [id number] s/p chemotherapy in 02/2016 Followed by [facility] heme/onc Status: Chronic HLD, on Simvastatin Family History FH: cancer FH: diabetes mellitus FHx: heart disease FHx: seizures Hyperlipidemia CHF - Father during his mid 40s Type 2 Diabetes Epilepsy Social History Smoking Status: Never Smoker Smokeless Tobacco Use: No Alcohol Use: has stopped for the past several months Drug Use: none Marital Status: Housing status: other (Lives at home with spouse) 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[employer]) Immunizations History of Influenza Vaccine: No History of Tetanus Vaccine?: Unknown History of Pneumococcal: No History of Hepatitis B Vaccine: No Multi-Drug Resistant Organisms History of MDRO: No Allergies Coded Allergies: Dairy (Verified Allergy, Intermediate, DIGESTIVE ISSUES, 12/21/16) NO KNOWN DRUG ALLERGIES (Verified Allergy, Unknown, ., 12/14/16) Home Medications Scheduled Dicyclomine Hcl (Bentyl), 20 MG PO QID PRN Magnesium Oxide (Mag-Ox), 400 MG PO DAILY Omeprazole (Prilosec), 40 MG PO QAM Simvastatin (Zocor), 10 MG PO QPM Scheduled PRN Cetirizine (Zyrtec), 10 MG PO DAILY PRN for PRN Tadalafil (Cialis), 5 MG PO UD PRN for ED Review of Systems A 10 point review of systems was negative unless stated above. Physical Exam Vital Signs Date Time Temp Pulse Resp B/P (MAP) Pulse Ox O2 Delivery O2 Flow Rate FiO2 01/28/17 20:32 75 12 120/72 96 Room Air 01/28/17 19:10 67 01/28/17 18:50 72 18 119/76 100 01/28/17 17:27 36.6 87 20 109/77 95 Room Air General Appearance: WD/WN, no apparent distress, + pertinent finding ( Jaundicing) Head: normocephalic, atraumatic Eyes: + pertinent finding (scleral icterus) ENT: hearing grossly normal, pharynx normal Neck: supple, no adenopathy, no JVD Respiratory/Chest: lungs clear, no respiratory distress Cardiovascular: regular rate, rhythm, no gallop, no murmur Abdomen/GI: normal bowel sounds, non tender, soft, + pertinent finding (Hall' s sign negative) Back: no CVA tenderness, no muscle spasm Extremities/Musculoskelatal: no calf tenderness, no pedal edema Neurologic/Psych: alert, normal mood/affect, oriented x 3 Skin: normal color, warm/dry, no rash Lymphatic: no adenopathy Diagnostics Laboratory Results Results Past 24 Hours Test 01/28/17 18:05 01/28/17 18:25 01/28/17 20:21 01/28/17 20:29 Range/Units White Blood Count 3.53 4.8-10.8 K/uL Red Blood Count 4.50 4.7-6.1 M/uL Hemoglobin 15.2 14.0-18.0 g/dL Hematocrit 41.6 42-52 % Mean Corpuscular Volume 92.4 80-100 fL Mean Corpuscular Hemoglobin 33.8 25-34 pg Mean Corpuscular Hemoglobin Concent 36.5 32-36 g/dl Platelet Count 167 130-400 K/uL Mean Platelet Volume 9.5 7.4-10.4 fL Neutrophils (%) (Auto) 55.2 % Lymphocytes (%) (Auto) 37.1 % Monocytes (%) (Auto) 5.4 % Eosinophils (%) (Auto) 2.0 % Basophils (%) (Auto) 0.3 % Neutrophils # (Auto) 1.95 1.4-6.5 K/uL Lymphocytes # (Auto) 1.31 1.2-3.4 K/uL Monocytes # (Auto) 0.19 0.11-0.59 K/uL Eosinophils # (Auto) 0.07 0-0.5 K/uL Basophils # (Auto) 0.01 0-0.2 K/uL RDW Standard Deviation 47.1 36.4-46.3 fL RDW Coefficient of Variation 13.9 11.5-14.5 % Immature Granulocyte % (Auto) 0.0 % Immature Granulocyte # (Auto) 0.00 0.00-0.02 K/uL Sodium Level 139 136-145 mmol/L Potassium Level 3.7 3.5-5.1 mmol/L Chloride Level 106 98-107 mmol/L Carbon Dioxide Level 28 21-32 mmol/L Anion Gap 5.0 3-11 mmol/L Blood Urea Nitrogen 6 7-18 mg/dl Creatinine 1.00 0.60-1.40 mg/dl Est Creatinine Clear Calc Drug Dose 99.2 ml/min Estimated GFR () 102.7 Estimated GFR (Non- 88.6 BUN/Creatinine Ratio 5.7 10-20 Random Glucose 118 70-99 mg/dl Calcium Level 9.5 8.5-10.1 mg/dl Total Bilirubin 6.7 0.2-1 mg/dl Direct Bilirubin 5.3 0-0.2 mg/dl Aspartate Amino Transf (AST/SGOT) 171 15-37 U/L Alanine Aminotransferase (ALT/SGPT) 427 12-78 U/L Alkaline Phosphatase 463 45-117 U/L Total Protein 7.8 6.4-8.2 gm/dl Albumin 4.1 3.4-5.0 gm/dl Lipase 293 73-393 U/L Urine Color GRADY Urine Appearance CLEAR CLEAR Urine pH 7.5 4.5-7.5 Urine Specific [place] 1.016 1.000-1.030 Urine Protein NEG NEG Urine Glucose (UA) NEG NEG Urine Ketones NEG NEG Urine Occult Blood NEG NEG Urine Nitrite POS NEG Urine Bilirubin 3+ NEG Urine Urobilinogen NEG NEG Urine Leukocyte Esterase TRACE NEG Urine WBC (Auto) 1-5 0-5 /hpf Urine RBC (Auto) 0-4 0-4 /hpf Urine Hyaline Casts (Auto) 0 0-5 /lpf Urine Epithelial Cells (Auto) 0-5 0-5 /lpf Urine Bacteria (Auto) 1+ NEG Venous Blood pH 7.31 7.36-7.41 Venous Blood Partial Pressure CO2 51 38.0-50.0 mmHg Venous Blood Partial Pressure O2 27 mmHg Venous Blood HCO3 25 mmol/L Venous Blood Oxygen Saturation < 60.0 % Venous Blood Base Excess -1.8 mEq/L Bedside Lactic Acid Venous 0.62 0.90-1.70 mmol/L Microbiology Results 01/28/17 Urine Culture, Received Pending Diagnostic Radiology CT OF THE ABDOMEN AND PELVIS WITH CONTRAST CLINICAL HISTORY: Abdominal pain, elevated liver function tests. History of testicular cancer. COMPARISON STUDY: CT of the abdomen and pelvis August 29, 2016 and biliary ultrasound performed earlier today. TECHNIQUE: Following IV administration of 116 mL of Optiray-320, axial images of the abdomen and pelvis were obtained from the lung bases to the proximal femurs. Images were reviewed in the axial, sagittal, and coronal planes. IV contrast was administered without complication. A dose lowering technique was utilized adhering to the principles of ALARA. CT DOSE: 459.33 mGy.cm FINDINGS: Visualized portions of lower chest demonstrate left lower lobe opacity which favors atelectasis. There is mild intra and extrahepatic biliary ductal dilatation. There several partially calcified common bile duct calculi. These are suboptimally assessed by CT but measure up to approximately 5 mm. There are multiple gallstones within the gallbladder and the gallbladder neck with possible stones within the cystic duct. There is mild pericholecystic infiltration. The spleen, adrenal glands are unremarkable. There is no peripancreatic infiltration. There are numerous subcentimeter bilateral renal lesions which are too small to characterize but are unchanged. There is no evidence for a bowel obstruction. No enlarged lymph nodes are identified. There are findings consistent with a previous right orchiectomy. IMPRESSION: 1. Mild intra and extrahepatic biliary ductal dilatation with multiple common bile duct calculi. These are suboptimally assessed by CT but measure up to approximately 5 mm. 2. Cholelithiasis, including gallstones within the gallbladder neck. Mild pericholecystic infiltration. This may reflect acute cholecystitis. 3. No evidence of recurrent malignancy status post right orchiectomy. Electronically signed by: Sherif Corcoran M.D. 01/28/2017 8:51 PM Dictated Date/Time: 01/28/2017 8:39 PM ABDOMINAL ULTRASOUND, RIGHT UPPER QUADRANT HISTORY: Acute elevation of liver function tests. Abdominal distress. History of testicular cancer. COMPARISON: CT of the abdomen and pelvis August 29, 2016. FINDINGS: Liver is sonographically normal. There is mild dilatation of the common bile duct which measures approximately 1 cm in caliber. There is a possible 5 mm stone within the common bile duct. There are numerous gallstones within the gallbladder. There is no gallbladder wall thickening. A stone within the gallbladder neck is noted. No pericholecystic fluid is present. The pancreas is largely obscured by overlying bowel gas. There is no right hydronephrosis. IMPRESSION: 1. Cholelithiasis. No gallbladder wall thickening. 2. Mild dilatation of the common bile duct which measures 1 cm in caliber. Possible 5 mm common bile duct calculus. 3. Largely obscured pancreas. Electronically signed by: Sherif Corcoran M.D. 01/28/2017 8:11 PM Dictated Date/Time: 01/28/2017 8:07 PM Impression Assessment and Plan 46 year old male with acute on chronic abdominal pain. Evaluation in the ED revealed obstructive choledocholithiasis with potentially early cholecystitis. Clinically the patient is jaundiced and has elevated transaminases. He does not have a leukocytosis or fever, making ascending cholangitis unlikely at this time. Ultimately, definitive management would entail ERCP with interval cholecystectomy. Our plan for him is as follows: Choledocholithiasis with possible cholecystectomy - Clinically jaundiced; Hall's sign negative; no evidence of acute abdomen at this time - Elevated LFTs - NPO - IV NSS + 20 mEq KCl @ 125 - Morphine 2 mg IV q2h PRN pain - Zosyn IV - Consult GI; discussed case with Dr. Buckley - Consult General Surgery Chronic Abdominal Pain - Possibly due gallbladder etiology as noted above - Hold Bentyl - Continue PPI coverage; will change Omeprazole to Esomeprazole - Colonoscopy from 12/21 reviewed; internal hemorrhoids without other pathology noted Hypercholesterolemia - Continue Simvastatin DVT prophylaxis - SCD - MAAME - Hold pharmacological anticoagulation Code Status - Level I Full Disposition - Med/Surg Attending Addendum: I have physically seen and examined this patient, have supervised the medical residents activities, and agree with the H&P as noted above with the following exceptions as noted. The patient denies chest pain, palpitations, shortness of breath, cough, lower extremity swelling, vision change, hearing change, sore throat, fevers, chills, sweats, weight change, fatigue, nausea, vomiting, abdominal pain, pelvic pain, blood in urine or stool, dysuria, urinary frequency or urgency, lightheadedness , dizziness, headache, memory loss, rash, abnormal bruising or bleeding, imbalance, focal or generalized weakness, numbness or tingling in arms or legs, generalized arthralgias or myalgias, back or neck pain, night sweats, or allergy symptoms. The review of systems is otherwise negative other than for that already noted above, and at least 10 systems have been reviewed. The patient is awake, well-developed and adequately nourished, alert and oriented 3, normocephalic and atraumatic, lying in bed and in no acute distress. HEENT--PERRL, EOMI, mucous membranes and oropharynx dry. Neck--supple, no JVD or bruits, thyroid normal, trachea midline, no adenopathy. Heart--normal S1 and S2, no extra beats, no murmurs, rubs or gallops. Lungs--clear bilaterally with good air movement, no respiratory distress, no accessory muscle use. Abdomen--normal bowel sounds and soft, nontender and nondistended, no hernias or masses, no organomegaly. Extremities--no cyanosis, clubbing or edema. There are good distal pulses b/l. Dermatologic--normal skin turgor, normal color, warm and dry, no abnormal lymph nodes, no rash. Neurologic--cranial nerves II through XII grossly intact, motor and sensory examination normal. Rheumatologic--normal range of motion, nontender, muscles and joints. Psychiatric--normal affect. Assessment and Plan: 1. Acute cholecystitis/CBD stones/abnormal liver function tests-- The patient be admitted to the medical floor with nothing by mouth status. Will likely need ERCP prior to cholecystectomy. Gastroenterology was consulted. Gen. surgery has been consulted Zosyn IV Morphine sulfate 2 mg IV every 2 hours when necessary. NSS with KCl 20 mEq at 125 ML's per hour. PPI IV for GI prophylaxis. Level of Care Med/Surg Advanced Directives Existing Advance Directive: No Existing Living Will: No Existing Power of Powder Mixer: No Resuscitation Status FULL RESUSCITATION VTE Prophylaxis VTE Risk Assessment Done? Y/N: Yes Risk Level: Moderate Given or contraindicated: SCD's, Contraindicated (hold pending surgery) Social Service Consult None Apply
[2017-01-28 22:34] VITALS: BP 111/68; PULSE 66; TEMP 36.7; O2SAT 97; Ht 182.9 cm; Wt 88.9 kg
[2017-01-28] MEDS ORDERED: PIPERACILL/TAZOBAC IV 3.375 GM in DEXTROSE 5% 100ML IV STA (22:37)
[2017-01-28] MEDS ORDERED: PIPERACILL/TAZOBAC CONSULT ACTIVE PRN (22:45)
[2017-01-29] VITALS (9 sets, daily range): BP systolic 108–125; BP diastolic 66–77; PULSE 60–78; TEMP 36.5–36.8; O2SAT 95–97
[2017-01-29] MEDS: NSS + 20MEQ KCL 1000ML 1,000 ML IV SCH ×2 (02:20→08:49)
[2017-01-29] MEDS: PIPERACILL/TAZOBAC IV 3.375 GM in DEXTROSE 5% 100ML IV SCH ×3 (04:13→22:38)
[2017-01-29] MEDS ORDERED: PIPERACILL/TAZOBAC IV 3.375 GM in DEXTROSE 5% 100ML 100 ML IV SCH (06:00)
[2017-01-29] MEDS: MoRPHine SULFATE 2 MG/ML CARP IV PRN ×4 (06:35→23:20)
--- NOTE | 2017-01-29 07:51 | Family Medicine Progress Note ---
Progress Note Date of Service Jan 29, 2017. Subjective Pt evaluation today including: conversation w/ patient, conversation w/ family , physical exam, chart review, lab review PO Intake: NPO awaiting ERCP Voiding: no voiding problems Pt reports abdominal pain symptoms ongoing since August 2016. Describes them as waking him up at night, not sure if the pain would grow in strength or come on suddenly. Pain epidsodes last up to 24 hours, not associated with change in diet. Pain made him stay home from work at times. Says that lying on his back made it worse, and that lying on his side and propped up on pillows made it better and he could sleep. 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 Colonoscopy was negative. Pt tried FODMAP diet (low in fructose) and has h/o lactose intolerance , but with no improvement. Pt c/o of occasional loose stools, which on Monday appeared multicolored and candle maker than usual. Pt says he has lost about 4 lbs since August, but in room states that they have been more active and exercising lately this summer. Currently pt c/o some generalized itch which he says has been something he takes Zyrtec for twice a week for 2 years now. Pt's says his skin does look more yellow to her, although pt states he has also been in the sun more often this summer while exercising. Pt denies pain in his chest, extremities. Pt c/o mild pain in his lower back, exacerbated by lying down on his back that was worst this past Monday. Constitutional: No fever, No chills Respiratory: No cough, No sputum, No wheezing Cardiovascular: No chest pain, No edema Abdomen: + pain, + nausea, + problem reported (slightly pale stools noted on Monday), No diarrhea, No constipation Musculoskeletal: No joint pain, No muscle pain, No swelling Male : No dysuria Skin: + itch Objective Physical Exam General Appearance: WD/WN, no apparent distress Eyes: PERRL, EOMI, + abnormal sclerae exam (mild scleral icterus) Respiratory/Chest: chest non-tender, lungs clear, normal breath sounds, no respiratory distress Cardiovascular: regular rate, rhythm, no edema, no gallop, no JVD Abdomen: + tenderness (tenderness in epigastrium and RUQ. ) Extremities: normal range of motion, non-tender, normal inspection, no pedal edema Neurologic/Psychiatric: alert, normal mood/affect, oriented x 3 Skin: warm/dry, no rash, + jaundice Assessment and Plan 46M here for abdominal pain. jaundice, weight loss since August Cholelithiasis, s/o cholecystitis - GB US shows: 1. Cholelithiasis. No gallbladder wall thickening. 2. Mild dilatation of the common bile duct which measures 1 cm in caliber. Possible 5 mm common bile duct calculus. - ABD/Pelvic CT shows: 1. Mild intra and extrahepatic biliary ductal dilatation with multiple common bile duct calculi. These are suboptimally assessed by CT but measure up to approximately 5 mm. 2. Cholelithiasis, including gallstones within the gallbladder neck. Mild pericholecystic infiltration. This may reflect acute cholecystitis. 3. No evidence of recurrent malignancy status post right orchiectomy. - NPO - IVF NSS with KCl 20 mEq at 125 ML's per hour. - Morphine sulfate 2 mg IV every 2 hours for pain - Zosyn IV - PPI IV for GI prophylaxis. - ERCP unsuccessful here. Was able to insert pancreatic stents, endocet suppositories and starting on LR. Will transfer to [place] for advanced endoscopy. See note from GI. - Will f/u for lap choly 4-6 weeks post ERCP when inflammation is better controlled. Chronic abdominal pain - since August 2016 - likely 2/2 GB etiology Hypercholesterolemia - Continue Simvastatin DVT prophylaxis - SCD - MAAME - Hold pharmacological anticoagulation Code Status - Level I Full Disposition - Med/Surg Continued [facility] stay due to: inadequate oral pain control, multiple IV medications needed, home environment unsafe for pt Discharge planning: acute transfer Resident Tracking Resident Involvement: Resident Care Provided Care Provided: Adult Hospital Medicine
--- NOTE | 2017-01-29 08:02 | Pre-Operative Consultation ---
History General Date of Service: Jan 29, 2017. HPI HPI: The patient is a 46 year old male being seen for gallstones and possible acute cholecystitis and known choledocholithiasis. He presented abdominal pain beginning 5 days ago, mainly RUQ which worsens with lying flat and on his side. He has nausea but no vomiting. He also claims dizziness, difficulty focusing eyes, decreased appetite, dark urine, loose stool. He denies recent travel or antibiotic use. He has a past medical history of testicular cancer, seminoma. Historian: patient Risk Assessment Daily beta neo use?: No Problem List Medical Problems: (1) Abdominal pain Status: Acute (2) Cholelithiasis Status: Acute (3) Fecal impaction Status: Acute (4) Hyperbilirubinemia Status: Acute (5) Jaundice Status: Acute (6) Nausea Status: Acute (7) Rectal bleeding Status: Acute Medical & Surgical History Past Medical History: cancer, GERD, high cholesterol Past Surgical History: other (orchiectomy) Family History Family History: cancer, diabetes, heart disease, seizures Social History Hx Tobacco Use In Past Year?: No Smoking Status: Never Smoker Drug Use: none Marital status: Housing status: other Occupation status: employed Immunizations Have You Had Influenza Vaccine: No Have You Had Tetanus Vaccine: Unknown History of Pneumococcal: No History Hepatitis B Vaccine: No Allergies Allergies: Coded Allergies: Dairy (Verified Allergy, Intermediate, DIGESTIVE ISSUES, 12/21/16) NO KNOWN DRUG ALLERGIES (Verified Allergy, Unknown, ., 12/14/16) Medications Current Inpatient Medications Current Inpatient Medications Medications (Trade) Dose Ordered Sig/Tyson Route Start Time Stop Time Status Last Admin Dose Admin Ioversol (Optiray 320) 116 ml UD PRN IV 01/28/17 20:30 02/01/17 20:29 Ciprofloxacin/ Dextrose 400 mg/ Prmx 200 ml @ 100 mls/hr Q12 IV 01/29/17 09:00 02/08/17 08:59 Future Hold Acetaminophen (Tylenol Tab) 650 mg Q4H PRN PO 01/28/17 21:30 02/27/17 21:29 01/29/17 00:47 650 MG Al Hydrox/Mg Hydrox/Simethicone (Maalox Max Susp) 15 ml Q4H PRN PO 01/28/17 21:30 02/27/17 21:29 Magnesium Hydroxide (Milk Of Magnesia Susp) 30 ml Q6H PRN PO 01/28/17 21:30 02/27/17 21:29 Polyethylene (Miralax Powder Packet) 17 gm DAILY PRN PO 01/28/17 21:30 02/27/17 21:29 Ondansetron HCl (Zofran Inj) 4 mg Q6H PRN IV 01/28/17 21:30 02/27/17 21:29 Piperacillin Sod/ Tazobactam Sod 3.375 gm/Dextrose 115 ml @ 28.75 mls/ hr Q8H IV 01/29/17 04:00 02/08/17 03:59 01/29/17 04:13 28.75 MLS/HR Piperacillin Sod/ Tazobactam Sod (Consult) 1 ea UD PRN N/A 01/28/17 22:45 02/27/17 22:44 Morphine Sulfate (MoRPHine SULFATE INJ) 2 mg Q2H PRN IV 01/29/17 01:15 02/12/17 01:14 01/29/17 06:35 2 MG Potassium Chloride/Sodium Chloride 1,000 ml @ 125 mls/hr Q8H IV 01/29/17 02:00 02/28/17 01:59 01/29/17 02:20 125 MLS/HR Review of Systems Review of Systems Constitutional: denies chills, denies diaphoresis, denies fever, denies weakness Eyes: reports: no symptoms ENT: reports: no symptoms reported Cardiovascular: denies: chest pain, chest tightness, chest pressure, palpitations, syncope Respiratory: denies: cough, short of breath, stridor, cyanosis Gastrointestinal: abdominal pain, denies constipation, diarrhea, nausea, denies vomiting Genitourinary - Male: reports: no symptoms Integumentary: change in color, denies change in hair/nails, denies dryness, denies lumps, other (jaundice) Neurologic: denies: seizure, tingling, tremors, general weakness, focal weakness, vertigo Psychiatric: reports: no symptoms Endocrine: no symptoms Hematologic / Lymphatic: anemia, denies: easy bleeding, easy bruising Allergic / Immunologic: no symptoms Physical Exam Physical Exam General Appearance: + WD/WN, + other (jaundice), No distress Ears, Nose, Throat: + normal ENT inspection Neck: No abnormal inspection, No tracheal deviation, No lymphadenophy, No stiffness, No tenderness Respiratory: No chest tenderness, No accessory muscle use, No rales, No decreased breath sounds, No rhonchi, No stridor Cardiovascular: No tachycardia, No gallop/S3, No diastolic murmur, No gallop/S4 , No bradycardia, No systolic murmur Abdomen: + tenderness (mild), No rebound, No distension, No hernia, No guarding , No mass Extremities: No abnormal range of motion, No deformity, No swelling, No calf tenderness, No inflammation Neurologic/Psychiatric: No motor deficit/weakness, No disorientation, No sensory deficit Skin Characteristics: + abnormal color, + jaundice, No diaphoresis, No pallor Lymphatic: No abnormal adenopathy Diagnostics Labs Labs Results Past 24 Hours Test 01/28/17 18:05 01/28/17 18:25 01/28/17 20:21 01/28/17 20:29 Range/Units White Blood Count 3.53 4.8-10.8 K/uL Red Blood Count 4.50 4.7-6.1 M/uL Hemoglobin 15.2 14.0-18.0 g/dL Hematocrit 41.6 42-52 % Mean Corpuscular Volume 92.4 80-100 fL Mean Corpuscular Hemoglobin 33.8 25-34 pg Mean Corpuscular Hemoglobin Concent 36.5 32-36 g/dl Platelet Count 167 130-400 K/uL Mean Platelet Volume 9.5 7.4-10.4 fL Neutrophils (%) (Auto) 55.2 % Lymphocytes (%) (Auto) 37.1 % Monocytes (%) (Auto) 5.4 % Eosinophils (%) (Auto) 2.0 % Basophils (%) (Auto) 0.3 % Neutrophils # (Auto) 1.95 1.4-6.5 K/uL Lymphocytes # (Auto) 1.31 1.2-3.4 K/uL Monocytes # (Auto) 0.19 0.11-0.59 K/uL Eosinophils # (Auto) 0.07 0-0.5 K/uL Basophils # (Auto) 0.01 0-0.2 K/uL RDW Standard Deviation 47.1 36.4-46.3 fL RDW Coefficient of Variation 13.9 11.5-14.5 % Immature Granulocyte % (Auto) 0.0 % Immature Granulocyte # (Auto) 0.00 0.00-0.02 K/uL Sodium Level 139 136-145 mmol/L Potassium Level 3.7 3.5-5.1 mmol/L Chloride Level 106 98-107 mmol/L Carbon Dioxide Level 28 21-32 mmol/L Anion Gap 5.0 3-11 mmol/L Blood Urea Nitrogen 6 7-18 mg/dl Creatinine 1.00 0.60-1.40 mg/dl Est Creatinine Clear Calc Drug Dose 99.2 ml/min Estimated GFR () 102.7 Estimated GFR (Non- 88.6 BUN/Creatinine Ratio 5.7 10-20 Random Glucose 118 70-99 mg/dl Calcium Level 9.5 8.5-10.1 mg/dl Total Bilirubin 6.7 0.2-1 mg/dl Direct Bilirubin 5.3 0-0.2 mg/dl Aspartate Amino Transf (AST/SGOT) 171 15-37 U/L Alanine Aminotransferase (ALT/SGPT) 427 12-78 U/L Alkaline Phosphatase 463 45-117 U/L Total Protein 7.8 6.4-8.2 gm/dl Albumin 4.1 3.4-5.0 gm/dl Lipase 293 73-393 U/L Urine Color GRADY Urine Appearance CLEAR CLEAR Urine pH 7.5 4.5-7.5 Urine Specific [place] 1.016 1.000-1.030 Urine Protein NEG NEG Urine Glucose (UA) NEG NEG Urine Ketones NEG NEG Urine Occult Blood NEG NEG Urine Nitrite POS NEG Urine Bilirubin 3+ NEG Urine Urobilinogen NEG NEG Urine Leukocyte Esterase TRACE NEG Urine WBC (Auto) 1-5 0-5 /hpf Urine RBC (Auto) 0-4 0-4 /hpf Urine Hyaline Casts (Auto) 0 0-5 /lpf Urine Epithelial Cells (Auto) 0-5 0-5 /lpf Urine Bacteria (Auto) 1+ NEG Venous Blood pH 7.31 7.36-7.41 Venous Blood Partial Pressure CO2 51 38.0-50.0 mmHg Venous Blood Partial Pressure O2 27 mmHg Venous Blood HCO3 25 mmol/L Venous Blood Oxygen Saturation < 60.0 % Venous Blood Base Excess -1.8 mEq/L Bedside Lactic Acid Venous 0.62 0.90-1.70 mmol/L Microbiology Results 01/28/17 Urine Culture, Received Pending Diagnostic Radiology Diagnostic Radiology ABDOMINAL ULTRASOUND, RIGHT UPPER QUADRANT HISTORY: Acute elevation of liver function tests. Abdominal distress. History of testicular cancer. COMPARISON: CT of the abdomen and pelvis August 29, 2016. FINDINGS: Liver is sonographically normal. There is mild dilatation of the common bile duct which measures approximately 1 cm in caliber. There is a possible 5 mm stone within the common bile duct. There are numerous gallstones within the gallbladder. There is no gallbladder wall thickening. A stone within the gallbladder neck is noted. No pericholecystic fluid is present. The pancreas is largely obscured by overlying bowel gas. There is no right hydronephrosis. IMPRESSION: 1. Cholelithiasis. No gallbladder wall thickening. 2. Mild dilatation of the common bile duct which measures 1 cm in caliber. Possible 5 mm common bile duct calculus. 3. Largely obscured pancreas. CT OF THE ABDOMEN AND PELVIS WITH CONTRAST CLINICAL HISTORY: Abdominal pain, elevated liver function tests. History of testicular cancer. COMPARISON STUDY: CT of the abdomen and pelvis August 29, 2016 and biliary ultrasound performed earlier today. TECHNIQUE: Following IV administration of 116 mL of Optiray-320, axial images of the abdomen and pelvis were obtained from the lung bases to the proximal femurs. Images were reviewed in the axial, sagittal, and coronal planes. IV contrast was administered without complication. A dose lowering technique was utilized adhering to the principles of ALARA. CT DOSE: 459.33 mGy.cm FINDINGS: Visualized portions of lower chest demonstrate left lower lobe opacity which favors atelectasis. There is mild intra and extrahepatic biliary ductal dilatation. There several partially calcified common bile duct calculi. These are suboptimally assessed by CT but measure up to approximately 5 mm. There are multiple gallstones within the gallbladder and the gallbladder neck with possible stones within the cystic duct. There is mild pericholecystic infiltration. The spleen, adrenal glands are unremarkable. There is no peripancreatic infiltration. There are numerous subcentimeter bilateral renal lesions which are too small to characterize but are unchanged. There is no evidence for a bowel obstruction. No enlarged lymph nodes are identified. There are findings consistent with a previous right orchiectomy. IMPRESSION: 1. Mild intra and extrahepatic biliary ductal dilatation with multiple common bile duct calculi. These are suboptimally assessed by CT but measure up to approximately 5 mm. 2. Cholelithiasis, including gallstones within the gallbladder neck. Mild pericholecystic infiltration. This may reflect acute cholecystitis. 3. No evidence of recurrent malignancy status post right orchiectomy. Impression Assessment and Plan Assessment and Plan CHolelithiasis w/CBD stone -agree with IV abx -GI consult for ERCP -will plan lap gypsy after ERCP
--- NOTE | 2017-01-29 08:23 | Gastrointestinal Consultation ---
Gastrointestinal Consultation Date of Consultation: Jan 29, 2017 Attending Physician: Bree Consulting Physician: Ina Reason for Consultation: choledocholithiasis History of Present Illness Patient is a 46 year old male with a history of left testicular seminoma s/p surgery who was admitted last evening with persistent worsening central abdominal pain. THis first started a few weeks ago and has been occurring in waves, lasting for hours at times, then slowly resolving. However, in the last 4 -5 days it has been more severe and associated with some nausea. No vomiting. His appetite has been poor for about a week. No fevers. Labs on arrival were significant for transaminases in the 200-400's with bilirubin of 6 snd alk phos in 400's. RUQ ultrasound showed stones in the gallbladder as well as CBD of 1cm with?5mm stone. He was given Zosyn and started on IVF and pain medication and bowel rest. Lipase normal. No fevers. No abd pain this AM. Evaluated by surgery this AM - plan for cholecystectomy once duct cleared. Past Medical/Surgical History Medical Problems: (1) Abdominal pain Status: Acute (2) Cholelithiasis Status: Acute (3) Fecal impaction Status: Acute (4) Hyperbilirubinemia Status: Acute (5) Jaundice Status: Acute (6) Nausea Status: Acute (7) Rectal bleeding Status: Acute Past Medical History: hyperlipidemia h/o testicular cancer s/p chemo anemia Past Surgical History: none Family History FH: cancer FH: diabetes mellitus FHx: heart disease FHx: seizures Social History Smoking Status: Never Smoker Drug Use: none Marital Status: Occupation Status: employed Allergies Coded Allergies: Dairy (Verified Allergy, Intermediate, DIGESTIVE ISSUES, 12/21/16) NO KNOWN DRUG ALLERGIES (Verified Allergy, Unknown, ., 12/14/16) Current Medications Home Meds and Scripts Medications Dose Route/Sig Max Daily Dose Days Date Category Mag-Ox (Magnesium Oxide) 400 Mg Tab 400 Mg PO DAILY 12/21/16 Reported Zyrtec (Cetirizine HCl) 10 Mg Tab 10 Mg PO DAILY PRN 12/14/16 Reported Zocor (Simvastatin) 10 Mg Tab 10 Mg PO QPM 12/14/16 Reported Prilosec (Omeprazole) 40 Mg Cap 40 Mg PO QAM 12/14/16 Reported Cialis (Tadalafil) 5 Mg Tab 5 Mg PO UD PRN 12/28/12 Reported Bentyl (Dicyclomine Hcl) 20 Mg Tab 20 Mg PO QID PRN 01/10/12 Reported Review of Systems 12 systems reviewed and negative except as noted Physical Exam Date Time Temp Pulse Resp B/P (MAP) Pulse Ox O2 Delivery O2 Flow Rate FiO2 01/29/17 07:51 Room Air 01/29/17 07:09 36.7 62 16 108/66 (80) 95 Room Air 01/29/17 00:40 Room Air 01/28/17 22:34 36.7 66 17 111/68 97 Room Air 01/28/17 22:09 77 15 119/71 96 01/28/17 20:32 75 12 120/72 96 Room Air 01/28/17 19:10 67 01/28/17 18:50 72 18 119/76 100 01/28/17 17:27 36.6 87 20 109/77 95 Room Air General Appearance: WD/WN, no apparent distress Eyes: normal inspection, PERRL ENT: normal ENT inspection, hearing grossly normal, pharynx normal Neck: supple, no adenopathy, no JVD Respiratory/Chest: chest non-tender, lungs clear, normal breath sounds, no respiratory distress, no accessory muscle use Cardiovascular: regular rate, rhythm, no edema, no murmur Abdomen: normal bowel sounds, non tender, soft Extremities: normal range of motion, non-tender, normal inspection, no pedal edema Neurologic/Psych: coding compliance manager II-XII nml as tested, no motor/sensory deficits, alert, normal mood/affect, oriented x 3 Skin: warm/dry, no rash, + pertinent finding (+scleral icterus) Laboratory Results Last 24 Hours Test 01/28/17 18:05 01/28/17 18:25 01/28/17 20:21 01/28/17 20:29 White Blood Count 3.53 K/uL Red Blood Count 4.50 M/uL Hemoglobin 15.2 g/dL Hematocrit 41.6 % Mean Corpuscular Volume 92.4 fL Mean Corpuscular Hemoglobin 33.8 pg Mean Corpuscular Hemoglobin Concent 36.5 g/dl Platelet Count 167 K/uL Mean Platelet Volume 9.5 fL Neutrophils (%) (Auto) 55.2 % Lymphocytes (%) (Auto) 37.1 % Monocytes (%) (Auto) 5.4 % Eosinophils (%) (Auto) 2.0 % Basophils (%) (Auto) 0.3 % Neutrophils # (Auto) 1.95 K/uL Lymphocytes # (Auto) 1.31 K/uL Monocytes # (Auto) 0.19 K/uL Eosinophils # (Auto) 0.07 K/uL Basophils # (Auto) 0.01 K/uL RDW Standard Deviation 47.1 fL RDW Coefficient of Variation 13.9 % Immature Granulocyte % (Auto) 0.0 % Immature Granulocyte # (Auto) 0.00 K/uL Sodium Level 139 mmol/L Potassium Level 3.7 mmol/L Chloride Level 106 mmol/L Carbon Dioxide Level 28 mmol/L Anion Gap 5.0 mmol/L Blood Urea Nitrogen 6 mg/dl Creatinine 1.00 mg/dl Est Creatinine Clear Calc Drug Dose 99.2 ml/min Estimated GFR () 102.7 Estimated GFR (Non- 88.6 BUN/Creatinine Ratio 5.7 Random Glucose 118 mg/dl Calcium Level 9.5 mg/dl Total Bilirubin 6.7 mg/dl Direct Bilirubin 5.3 mg/dl Aspartate Amino Transf (AST/SGOT) 171 U/L Alanine Aminotransferase (ALT/SGPT) 427 U/L Alkaline Phosphatase 463 U/L Total Protein 7.8 gm/dl Albumin 4.1 gm/dl Lipase 293 U/L Urine Color GRADY Urine Appearance CLEAR Urine pH 7.5 Urine Specific [place] 1.016 Urine Protein NEG Urine Glucose (UA) NEG Urine Ketones NEG Urine Occult Blood NEG Urine Nitrite POS Urine Bilirubin 3+ Urine Urobilinogen NEG Urine Leukocyte Esterase TRACE Urine WBC (Auto) 1-5 /hpf Urine RBC (Auto) 0-4 /hpf Urine Hyaline Casts (Auto) 0 /lpf Urine Epithelial Cells (Auto) 0-5 /lpf Urine Bacteria (Auto) 1+ Venous Blood pH 7.31 Venous Blood Partial Pressure CO2 51 mmHg Venous Blood Partial Pressure O2 27 mmHg Venous Blood HCO3 25 mmol/L Venous Blood Oxygen Saturation < 60.0 % Venous Blood Base Excess -1.8 mEq/L Bedside Lactic Acid Venous 0.62 mmol/L Impression Patient is a 46 year old male admitted with cholecystitis and choledocholithiasis. Does not appear cholangitic. Plan ERCP to be done later this AM. Keep patient NPO. IVF. PRN analgesia. Procedure discussed in detail with patient and his . All questions answered.
[2017-01-29] MEDS ORDERED: HYDROmorphone INJ 1 MG/ML SYR IV PRN (09:00)
[2017-01-29] MEDS ORDERED: ONDANSETRON INJ 2 MG/ML 2 ML VIAL IV PRN (09:00)
[2017-01-29] MEDS ORDERED: EpHEDrine SULFATE INJ 50 MG/ML AMP IV PRN (09:00)
[2017-01-29] MEDS ORDERED: ATROPINE SULFATE 0.1 MG/ML 5ML SYR IV PRN (09:00)
[2017-01-29] MEDS ORDERED: FENTANYL CITRATE INJ 50 MCG/1 ML 2 ML VIAL IV PRN (09:00)
[2017-01-29] MEDS ORDERED: CIPROFLOXACIN / D5W 400 MG in PREMIXED IN D5W 200 ML IV SCH (09:00)
[2017-01-29] MEDS ORDERED: INDOMETHACIN 50 MG SUPP PR ONE ×2 (10:40→11:15)
[2017-01-29] MEDS ORDERED: ROCURONIUM BROMIDE 10 MG/ML 5 ML VIAL ONE (10:56)
[2017-01-29] MEDS ORDERED: FENTANYL CITRATE INJ 50 MCG/1 ML 2 ML VIAL ONE (10:56)
[2017-01-29] MEDS ORDERED: PROPOFOL IV EMULSION 10 MG/ML 20 ML VIAL IV ONE (10:56)
[2017-01-29] MEDS ORDERED: LIDOCAINE HCL 2% 2 ML VIAL (20MG/ML) ONE (10:56)
[2017-01-29] MEDS ORDERED: MIDAZOLAM HCL 1 MG/ML 2ML VIAL ONE (10:56)
[2017-01-29] MEDS: BUPIVACAINE/EPINEPHRINE 0.5% MPF 1:200,000 10 ML VIAL ONE ×2 (10:58→12:38)
[2017-01-29] MEDS ORDERED: ONDANSETRON INJ 2 MG/ML 2 ML VIAL ONE ×2 (11:37→12:48)
[2017-01-29] MEDS ORDERED: GLYCOPYRROLATE INJ 0.2 MG/ML VIAL ONE (11:37)
[2017-01-29] MEDS ORDERED: PHENYLEPHRINE 100MCG/ML 5ML SYR ONE (11:37)
[2017-01-29] MEDS ORDERED: DEXAMETHASONE SOD INJ 4 MG/ML VIAL ONE (11:37)
[2017-01-29] MEDS ORDERED: NEOSTIGMINE METHYLSULFATE 5 MG/5 ML SYR ONE (11:37)
--- NOTE | 2017-01-29 13:03 | GI REPORT ---
Procedure Date: 01/29/2017 11:11 AM Procedure: ERCP Indications: Bile duct stone on Computed Tomogram Scan, For therapy of bile duct stone(s), Preop exam: Laparoscopic cholecystectomy Medicines: General Anesthesia, Indomethicin 100 mg rectal Complications: No immediate complications. Estimated blood loss: None Estimated Blood Loss: Estimated blood loss: none. Procedure: Pre-Anesthesia Assessment: - Prior to the procedure, a History and Physical was performed, and patient medications, allergies and sensitivities were reviewed. The patient's tolerance of previous anesthesia was reviewed. - ASA Grade Assessment: II - A patient with mild systemic disease. After obtaining informed consent, the scope was passed under direct vision. Throughout the procedure, the patient's blood pressure, pulse, and oxygen saturations were monitored continuously. The SCOPE was introduced through the mouth, and advanced to the duodenum and used to inject contrast into the dorsal pancreatic duct. The ERCP was unusually difficult due to challenging cannulation. The patient tolerated the procedure well. Findings: The molder meat film was normal. The esophagus was successfully intubated under direct vision. The scope was advanced to a slightly bulging major papilla in the descending duodenum without detailed examination of the pharynx, larynx and associated structures, and upper GI tract. The upper GI tract was grossly normal. Deep cannulation of the dorsal pancreatic duct was accomplished with the Ranjith Cook FR35 short-nosed traction sphincterotome. Because initial attempts at biliary cannulation were unsuccessful, a guidewire was left in the pancreatic duct and attempts were made to cannulate with a double wire technique. This was unsuccessful. One 5 Fr by 5 cm plastic stent with a 3/4 external pigtail and no internal flaps was placed into the ventral pancreatic duct. The stent was in good position. Further attempts at cannulation of the bile duct were unsuccessful. A 5 mm pre-cut sphincterotomy was made with a monofilament needle knife over a pancreatic stent using ERBE electrocautery. There was no post-sphincterotomy bleeding. Further attempts at biliary cannulation were unsuccessful. Impression: - One plastic stent was placed into the ventral pancreatic duct. - A sphincterotomy was performed. - Attempts at a cholangiogram failed. Recommendation: - Transfer patient to another hospital for completion ERCP and laparoscopic cholecystectomy. - Case disussed with Dr. Abelino Hayden at [facility] in [place]. Martin Germain M.D. Martin Germain MD 01/29/2017 1:03:28 PM This report has been signed electronically. Note Initiated On: 01/29/2017 11:11 AM I attest to the content of the Intraoperative Record and orders documented therein, exceptions below
--- NOTE | 2017-01-29 13:09 | [facility] Operative Report ---
Operative Report Operative Date Jan 29, 2017. Pre-Operative Diagnosis Cholelithiasis Post-Operative Diagnosis Cholelithiasis Procedure(s) Performed Endoscopic Retrograde Cholangiopancreatography Surgeon Yelitza Germain Managing Director [employer] Surgeon(s) Endoscopy staff fro ERCP Estimated Blood Loss 0cc Findings Failed cholangiogram. Temporary stent left in the pancreatic duct. Specimens none per surgeon Drains None Anesthesia General Complication(s) None Disposition Recovery Room / PACU Indications Choledocholithiasis with jaundice, cholelithiasis Description of Procedure See Provation note I attest to the content of the Intraoperative Record and any orders documented therein. Any exceptions are noted below.
--- NOTE | 2017-01-29 13:13 | DIAGNOSTIC IMAGING REPORT ---
ERCP BILIARY DUCTAL CLINICAL HISTORY: ERCP IN OR. Pancreatic duct stent. FLUOROSCOPY TIME: 2 minutes and 45 seconds.. FINDINGS: 5 fluoroscopic spot images. The endoscope is seen at the second portion of the duodenum. The pancreatic duct was cannulated. This was followed by placement of a pancreatic duct stent. The stent appears to be in good position. IMPRESSION: Fluoroscopy provided for pancreatic duct stent placement. Electronically signed by: Rosendo Thornton M.D. 01/29/2017 1:11 PM Dictated Date/Time: 01/29/2017 1:10 PM
--- NOTE | 2017-01-29 14:19 | Anesthesiology Progress Note ---
Anesthesia Post Op Note Date & Time Jan 29, 2017 at 14:19 Vital Signs Pain Intensity: 0 Vital Signs Past 12 Hours Date Time Temp Pulse Resp B/P (MAP) Pulse Ox O2 Delivery O2 Flow Rate FiO2 01/29/17 14:02 36 52 18 114/61 99 Room Air 01/29/17 13:40 36.2 57 18 100/56 99 Room Air 01/29/17 13:30 59 18 104/57 97 Room Air 01/29/17 13:20 62 18 116/70 97 Room Air 01/29/17 13:10 67 16 117/72 97 Room Air 01/29/17 13:00 63 16 118/74 99 Mask 5 01/29/17 12:50 36 63 16 121/70 99 Mask 5 01/29/17 07:51 Room Air 01/29/17 07:09 36.7 62 16 108/66 (80) 95 Room Air Notes Mental Status: alert / awake / arousable, participated in evaluation Pt Amnestic to Procedure: Yes Nausea / Vomiting: adequately controlled Pain: adequately controlled Airway Patency, RR, SpO2: stable & adequate BP & HR: stable & adequate Hydration State: stable & adequate Anesthetic Complications: no major complications apparent
[2017-01-29] MEDS: D5W AND LACTATED RINGERS 1,000 ML IV SCH ×3 (14:26→23:19)
--- NOTE | 2017-01-29 14:40 | Discharge Summary ---
Discharge Summary Date of Service Jan 29, 2017. Discharge Summary Admission Date: Jan 28, 2017 at 21:28 Discharge Disposition: Acute care facility Principal Diagnosis: Obstructive Jaundice Immunizations: Have You Had Influenza Vaccine: No History of Tetanus Vaccine?: Unknown History of Pneumococcal: No History of Hepatitis B Vaccine: No Consultations: GI - [facility] Discharge Exam No abdominal pain at the time of discharge Review of Systems: Constitutional: No fever Respiratory: No shortness of breath Cardiovascular: No chest pain Abdomen: No pain Physical Exam: General Appearance: no apparent distress Respiratory/Chest: lungs clear, no respiratory distress Cardiovascular: regular rate, rhythm Abdomen / GI: normal bowel sounds, non tender, soft Neurologic/Psychiatric: alert, oriented x 3 Skin: + jaundice Hospital Course 46 y/o M with PMHx of Chronic abdominal pain, testicular cancer, seminoma here with intermittent burning abdominal pain beginning 5 days ago worse with lying flat and on his side associated with nausea, dizziness, difficulty focusing eyes , decreased appetite, dark urine, loose stool. No fever, chills. He has history of chronic abdominal pain. In the ED he was noted to be jaundiced and had elevated LFT. RUQ abdomen ultrasound showed CBD stone with dilatation. Admitted for obstructive choledocholithiasis with potentially early cholecystitis. Started on IV fluids, IV zosyn and IV cipro. Kept NPO Underwent ERCP next am by Dr. Germain The ERCP was difficult and was recommended to transfer to tertiary care. Dr. Woods accepted him as transfer on medical service. Total Time Spent: Greater than 30 minutes This includes examination of the patient, discharge planning, medication reconciliation, and communication with other providers. Discharge Instructions Please refer to the electronic Patient Visit Report (Discharge Instructions) for additional information. Additional Copies To Rene Benton III, CRNP
[2017-01-29] MEDS ORDERED: CETIRIZINE HCL 10 MG TAB PO PRN (22:30)
[2017-02-07] MEDS ORDERED: DICY20TA35 PO (11:01)
[2017-02-07] MEDS ORDERED: SIMV10TA2 PO (12:59)
[2017-02-07] MEDS ORDERED: OMEP40CA41 PO (12:59)
[2017-02-07] MEDS ORDERED: CETI10TA84 PO (12:59)
== END 2017-01-29 23:45 | disposition short-term general hospital (02) | DRG 446 ==
LOC: C.EDB 17:24 → C.MSW 21:28 → ENRESERV 21:41
PROVIDERS: ADMIT Student in an Organized Health Care Education/Training Program; ATTEND Family Medicine
PROC: 0F7D8DZ Dilation of Pancreatic Duct with Intraluminal Device, Via Natural or Artificial Opening Endoscopic (ICD-10-PCS; principal; 2017-01-29 12:30)
DX: K80.41 Calculus of bile duct with cholecystitis, unspecified, with obstruction (principal); E78.5 Hyperlipidemia, unspecified; Z83.3 Family history of diabetes mellitus; Z85.47 Personal history of malignant neoplasm of testis; K56.41 Fecal impaction

== ENCOUNTER → 2017-02-06 | Outpatient (CLI) | payer BC ==
[~2017-02-06] MED LIST changes: +ACET-1256 PO; +CETI10TA84 PO; +DICY20TA35 PO; +DIPH-437 PO; +OMEP40CA41 PO; +SIMV10TA2 PO
--- NOTE | 2017-02-06 15:40 | DIAGNOSTIC IMAGING REPORT ---
TWO VIEW CHEST CLINICAL HISTORY: Testicular cancer. FINDINGS: PA and lateral chest radiographs are compared to study dated 12/13/2013 and correlated with chest CT dated 08/29/2016. The cardiomediastinal silhouette is unremarkable. The lungs and pleural spaces are clear. There is no pneumothorax. The bony thorax appears intact. IMPRESSION: No active disease in the chest. No concerning pulmonary lesion is seen by x-ray. Electronically signed by: Kemar Pulido M.D. 02/06/2017 3:39 PM Dictated Date/Time: 02/06/2017 3:38 PM
== END | disposition home or self-care (01) ==
LOC: C.RAD 14:58
PROVIDERS: ATTEND Nurse Practitioner Family
DX: C62.11 Malignant neoplasm of descended right testis (principal)

== ENCOUNTER 2017-02-07 15:22 | Emergency (ER) | payer BC ==
[~2017-02-07] VITALS: Ht 182.9 cm; Wt 86.0 kg
[~2017-02-07 15:22] MED LIST changes: -ACET-1256 PO; -DIPH-437 PO
[2017-02-07 15:27] VITALS: Ht 182.9 cm; Wt 86.0 kg
[2017-02-07] MEDS ORDERED: ACET-1256 PO (16:48)
[2017-02-07] MEDS ORDERED: DIPH-437 PO (16:48)
[2017-02-07] MEDS ORDERED: SODIUM CHLORIDE 0.9% 1000ML 1,000 ML IV STA (17:08)
[2017-02-07] MEDS ORDERED: ONDANSETRON INJ 2 MG/ML 2 ML VIAL IV STA (17:08)
[2017-02-07] MEDS ORDERED: FENTANYL CITRATE INJ 50 MCG/1 ML 2 ML VIAL IV STA (17:08)
--- NOTE | 2017-02-07 17:23 | EMERGENCY ROOM VISIT NOTE ---
History Report prepared by Yg: Billy Levine Under the Supervision of: Dr. Floyd Garces M.D. First contact with patient: 16:23 Chief Complaint: ABNORMAL LABS Stated Complaint: ELEVATED LIVER ENZYMES History of Present Illness The patient is a 46 year old white male with a past medical history of a recent cholecystectomy who presents to the ED with a cc of constant, abnormal labs beginning yesterday. The patient states that he recently had a bile stent removed and a cholecystectomy [facility]. He notes that he was discharged from his surgery 6 days ago. The patient states that he did not eat while in the hospital. He reports that he ate after being discharged, and his bowel movements were very runny. He reports that he was at the cancer clinic yesterday to check for tumors. The patient notes that his tests were negative, except his blood work which showed extremely elevated liver enzymes. He states that he has been experiencing jaundice and dark urination. The patient reports that he started experiencing nausea today, and he has had a decreased appetite. He notes that his abdomen has been hurting from his surgery , and he did not take any medication because he ran out. The patient states that he was taking oxycodone, and it was helping. He denies vomiting, fevers, and chills. Records show the patient had a complicated ERCP Dr. Germain, GI on the . Source of History: patient Onset: yesterday Position: other (global) Quality: other (abnormal labs) Timing: constant Modifying Factors (Relieving): narcotics Associated Symptoms: + nausea, + abdominal pain, + diarrhea, No fevers, No chills, No vomiting Note: Associated symptoms: jaundice, dark urination, decreased appetite Review of Systems See HPI for pertinent positives and negatives. A total of ten systems were reviewed and were otherwise negative. Past Medical & Surgical Medical Problems: (1) Anemia (2) Choledocholithiasis with obstruction (3) Elevated transaminase level (4) RUQ pain (5) Testis cancer Family History FH: cancer FH: diabetes mellitus FHx: heart disease FHx: seizures Social History Smoking Status: Never Smoker Drug Use: none Marital Status: Occupation Status: employed Current/Historical Medications Scheduled Omeprazole (Prilosec), 40 MG PO QAM Simvastatin (Zocor), 10 MG PO QPM Scheduled PRN Acetaminophen (Tylenol), 1,000 MG PO Q6H PRN for Pain Acetaminophen/Diphenhydramine (Tylenol Pm), 1 TAB PO HS PRN for Sleep Cetirizine (Zyrtec), 10 MG PO DAILY PRN for Allergy Symptoms Dicyclomine Hcl (Bentyl), 20 MG PO QID PRN for Abdominal Pain Allergies Coded Allergies: Lactose. (Verified Allergy, Intermediate, GI symptoms, 02/07/17) Physical Exam Vital Signs Date Time Temp Pulse Resp B/P (MAP) Pulse Ox O2 Delivery O2 Flow Rate FiO2 02/07/17 23:09 36.6 72 18 120/68 97 02/07/17 23:07 36.6 72 18 120/68 97 02/07/17 22:26 72 120/68 97 Room Air 02/07/17 20:38 74 125/71 99 Room Air 02/07/17 17:48 79 18 105/59 98 Room Air 02/07/17 15:27 36.6 88 16 117/76 95 Room Air Physical Exam GENERAL: Awake, alert, well-appearing, NAD, grossly jaundice HENT: Normocephalic, atraumatic. EYES: Normal conjunctiva. Sclera icterus. NECK: Supple. No nuchal rigidity. FROM. RESPIRATORY: CTAB, no rhonchi, wheezing, crackles CARDIAC: RRR, no MRG ABDOMEN: Soft, ND, BS+. Several well-healing incision sites consistent with previous cholecystectomy, mild bruising near incision and suprapubic area, diffuse abdominal pain in the middle, no guarding, no rebound. MSK: No chest wall TTP, no LE edema NEURO: GCS 15, CN 2-12 intact, moves all 4s on command SKIN: No rash or jaundice noted. Medical Decision & Procedures Laboratory Results 02/07/17 16:48 Red Blood Count 3.88, Mean Corpuscular Volume 92.0, Mean Corpuscular Hemoglobin 34.0, Mean Corpuscular Hemoglobin Concent 37.0, Mean Platelet Volume 10.2, Neutrophils (%) (Auto) 63.9, Lymphocytes (%) (Auto) 25.4, Monocytes (%) (Auto) 8.6, Eosinophils (%) (Auto) 1.4, Basophils (%) (Auto) 0.5, Neutrophils # (Auto) 2.66, Lymphocytes # (Auto) 1.06, Monocytes # (Auto) 0.36, Eosinophils # (Auto) 0.06, Basophils # (Auto) 0.02 02/07/17 16:48 Test 02/07/17 16:48 02/07/17 17:13 White Blood Count 4.17 K/uL (4.8-10.8) Red Blood Count 3.88 M/uL (4.7-6.1) Hemoglobin 13.2 g/dL (14.0-18.0) Hematocrit 35.7 % (42-52) Mean Corpuscular Volume 92.0 fL (80-100) Mean Corpuscular Hemoglobin 34.0 pg (25-34) Mean Corpuscular Hemoglobin Concent 37.0 g/dl (32-36) Platelet Count 244 K/uL (130-400) Mean Platelet Volume 10.2 fL (7.4-10.4) Neutrophils (%) (Auto) 63.9 % Lymphocytes (%) (Auto) 25.4 % Monocytes (%) (Auto) 8.6 % Eosinophils (%) (Auto) 1.4 % Basophils (%) (Auto) 0.5 % Neutrophils # (Auto) 2.66 K/uL (1.4-6.5) Lymphocytes # (Auto) 1.06 K/uL (1.2-3.4) Monocytes # (Auto) 0.36 K/uL (0.11-0.59) Eosinophils # (Auto) 0.06 K/uL (0-0.5) Basophils # (Auto) 0.02 K/uL (0-0.2) RDW Standard Deviation 52.7 fL (36.4-46.3) RDW Coefficient of Variation 15.7 % (11.5-14.5) Immature Granulocyte % (Auto) 0.2 % Immature Granulocyte # (Auto) 0.01 K/uL (0.00-0.02) Anion Gap 7.0 mmol/L (3-11) Est Creatinine Clear Calc Drug Dose 90.2 ml/min Estimated GFR () 91.5 Estimated GFR (Non- 79.0 BUN/Creatinine Ratio 6.3 (10-20) Calcium Level 9.8 mg/dl (8.5-10.1) Total Bilirubin 20.1 mg/dl (0.2-1) Direct Bilirubin 15.6 mg/dl (0-0.2) Aspartate Amino Transf (AST/SGOT) 410 U/L (15-37) Alanine Aminotransferase (ALT/SGPT) 726 U/L (12-78) Alkaline Phosphatase 1056 U/L (45-117) Total Protein 7.3 gm/dl (6.4-8.2) Albumin 3.4 gm/dl (3.4-5.0) Lipase 240 U/L (73-393) Urine Color BROWN Urine Appearance SLIGHTLY CLOUDY (CLEAR) Urine pH (4.5-7.5) Urine Specific [place] 1.017 (1.000-1.030) Urine Protein NEG (NEG) Urine Glucose (UA) (NEG) Urine Ketones (NEG) Urine Occult Blood (NEG) Urine Nitrite (NEG) Urine Bilirubin (NEG) Urine Urobilinogen (NEG) Urine Leukocyte Esterase (NEG) Urine RBC 5-10 /hpf (0-4) Urine WBC 1-5 /hpf (0-5) Urine Epithelial Cells 5-10 /lpf (0-5) Urine Bacteria 1+ (NEG) Laboratory results reviewed by me Medications Administered Medications (Trade) Dose Ordered Sig/Tyson Route Start Time Stop Time Status Last Admin Dose Admin Sodium Chloride 1,000 ml @ 125 mls/hr Q8H STAT IV 02/07/17 17:08 02/08/17 01:07 02/07/17 17:45 125 MLS/HR Ondansetron HCl (Zofran Inj) 4 mg NOW STAT IV 02/07/17 17:08 02/07/17 17:10 DC 02/07/17 17:44 4 MG Fentanyl Citrate (Fentanyl Inj) 50 mcg ONE STAT IV 02/07/17 17:08 02/07/17 17:10 DC 02/07/17 17:44 50 MCG Morphine Sulfate (MoRPHine SULFATE INJ) 4 mg NOW STAT IV 02/07/17 22:56 02/07/17 22:57 DC 02/07/17 23:05 4 MG ED Course 1652: The patient was evaluated in room C11B. A complete history and physical exam was performed. 4: [facility] the [facility] He states that the patient should be transferred unless there is a tumor burden causing his LFT elevation. 7: I discussed the patient's case with Raphael Terry Hospitalist. The patient will be transferred for further treatment. Medical Decision The patient is a 46 year old white male with a past medical history of a recent cholecystectomy who presents to the ED with a cc of constant, abnormal labs beginning yesterday. Differential diagnosis included: etiologies such as appendicitis, diverticulitis, PUD, biliary pathology, UTI, pancreatitis, obstruction, mesenteric ischemia, aortic pathology, infections, inflammatory bowel disease, renal colic, as well as others were entertained. Patient was seen and evaluated here approximately 10 days prior where he had obstructive choledocholithiasis. Patient had an ERCP that was complicated and required transferred to [facility] for higher level of care. Patient had a lap cholecystectomy in addition to a possible stent placement status post ERCP. Patient had presented for his oncological follow-up and was noted to have elevated transaminitis and elevated alkaline phosphatase and bilirubin. Patient states he has had some mild pain has been mentating well and mild nausea but no vomiting. Patient was seen and evaluated and labs were completed. Patient did have a worsening transaminitis compared to his prior visit. Patient also had elevated alkaline phosphatase greater than 1000. Patient total bili was 20. I spoke with the folder operator here he stated there is a concern about possible improper sized versus migration of stent vs occlusion. I spoke with the folder operator at [facility] who agreed to see the patient. Furthermore, I spoke with the hospitalist at [facility] who agreed to accept the patient. Patient was cleared medically for transport by ground. Patient was taken to [facility]. Consults Time Called: 1808 Consulting Physician: Raphael Caal Returned Call: [phone] I discussed the patient's case with Raphael Caal. He states that the patient should be transferred unless there is a tumor burden causing his LFT elevation. Additional Consults: Time Called: 1815 Consulted Physician: Raphael Terry Hospitalist Returned Call: [phone] Additional Comments: I discussed the patient's case with Raphael Terry. The patient will be evaluated for further treatment. Impression Primary Impression: Elevated transaminase level Additional Impressions: Hyperbilirubinemia Post-operative pain Scribe Attestation The scribe's documentation has been prepared under my direction and personally reviewed by me in its entirety. I confirm that the note above accurately reflects all work, treatment, procedures, and medical decision making performed by me. Departure Information Dispostion Transfer Acute Care Facility Referrals Rene Benton III, CRNP (PCP) Patient Instructions [facility] Problem Qualifiers
[2017-02-07 17:32] LABS: BASO % 0.5 %; BASO ABS # 0.02 K/uL (0-0.2); COMPLETE YES; EOS % 1.4 %; HEMATOCRIT 35.7 % (42-52); IG% 0.2 %; LYMPH % 25.4 %; LYMPH ABS # 1.06 K/uL (1.2-3.4); MEAN PLATELET VOLUME 10.2 fL (7.4-10.4); MONO % 8.6 %; NEUT % 63.9 %; PLATELET COUNT 244 K/uL (130-400); RED BLOOD COUNT 3.88 M/uL (4.7-6.1); WHITE BLOOD COUNT 4.17 K/uL (4.8-10.8)
[2017-02-07] MEDS ORDERED: FENTANYL CITRATE INJ 50 MCG/1 ML 2 ML VIAL ONE (17:41)
[2017-02-07] MEDS ORDERED: ONDANSETRON INJ 2 MG/ML 2 ML VIAL ONE (17:41)
[2017-02-07 18:02] LABS: CALCIUM 9.8 mg/dl (8.5-10.1)
[2017-02-07 18:07] LABS: CREATININE 1.1 mg/dl (0.60-1.40); POTASSIUM 3.8 mmol/L (3.5-5.1)
[2017-02-07 18:08] LABS: BUN/CREATININE RATIO 6.3 (10-20)
[2017-02-07 18:31] LABS: MANUAL MICROSCOPIC REQUIRED? YES; REVIEW REQ? NO
[2017-02-07 18:32] LABS: SULFASALICYLIC ACID NEG (NEG); URINE APPEARANCE SLIGHTLY CLOUDY (CLEAR); URINE COLOR BROWN
[2017-02-07 18:33] LABS: URINE SPECIFIC GRAVITY 1.017 (1.000-1.030)
[2017-02-07 18:44] LABS: URINE BACTERIA 1+ (NEG)
[2017-02-07 18:47] LABS: ZZUR CULT IF INDIC CLEAN CATCH YES
[2017-02-07] MEDS ORDERED: ASPIRIN 81 MG CHEW ONE (20:12)
[2017-02-07] MEDS ORDERED: MoRPHine SULFATE 4 MG/ML 1 ML CARP\\VIAL IV STA (22:56)
[2017-02-07 23:09] VITALS: BP 120/68; PULSE 72; TEMP 36.6; O2SAT 97
== END 2017-02-07 23:08 | disposition short-term general hospital (02) ==
LOC: C.EDB 15:24 → C.EDC 23:08
DX: R74.0 Nonspecific elevation of levels of transaminase and lactic acid dehydrogenase [LDH] (principal); R74.8 Abnormal levels of other serum enzymes; R17 Unspecified jaundice; G89.18 Other acute postprocedural pain; Z85.47 Personal history of malignant neoplasm of testis; Z80.9 Family history of malignant neoplasm, unspecified; Z83.3 Family history of diabetes mellitus; Z82.0 Family history of epilepsy and other diseases of the nervous system; Z79.899 Other long term (current) drug therapy

== ENCOUNTER → 2017-02-15 | Outpatient (CLI) | payer BC ==
[~2017-02-15] MED LIST changes: +ACET-1256 PO; +DIPH-437 PO; -MAGN400T6 PO; -TADA5TAB11 PO
== END | disposition home or self-care (01) ==
LOC: C.LAB 19:05
PROVIDERS: ATTEND Nurse Practitioner Family
DX: R74.8 Abnormal levels of other serum enzymes (principal)

== ENCOUNTER → 2017-09-14 | Outpatient (CLI) | payer OTHER ==
[~2017-09-14] MED LIST changes: +OPTIRAY 320 IV PRN
[2017-09-14 10:32] LABS: ALBUMIN 4.1 gm/dl (3.4-5.0); ALT/SGPT 47 U/L (12-78); AST/SGOT 19 U/L (15-37); BLOOD UREA NITROGEN 13 mg/dl (7-18); CALCIUM 8.9 mg/dl (8.5-10.1); CARBON DIOXIDE 27 mmol/L (21-32); CHOLESTEROL 208 mg/dl (0-200); CREATININE 0.96 mg/dl (0.60-1.40); GLUCOSE 97 mg/dl (70-99); SODIUM 138 mmol/L (136-145); TOTAL PROTEIN 7.5 gm/dl (6.4-8.2)
[2017-09-14 10:34] LABS: ALKALINE PHOSPHATASE 97 U/L (45-117); LDL CHOLESTEROL CALCULATED 99 mg/dl
--- NOTE | 2017-09-14 13:04 | DIAGNOSTIC IMAGING REPORT ---
CT (CHEST) THORAX WITH CT DOSE: 1636.23 mGycm HISTORY: Testicular carcinoma TESTICULAR CA TECHNIQUE: Multiaxial CT images of the chest were performed following the intravenous administration of contrast. A dose lowering technique was utilized adhering to the principles of ALARA. COMPARISON: 08/29/2016 FINDINGS: The lungs are clear. The mediastinal vascular structures are within normal limits. No mediastinal or hilar lymphadenopathy. No pleural effusion or pneumothorax. Limited views of the upper abdomen demonstrate a normal liver and spleen. IMPRESSION: No significant abnormality identified within the chest. No evidence for metastatic disease. No change from the prior study. The above report was generated using voice recognition software. It may contain grammatical, syntax or spelling errors. Electronically signed by: Roberto Lauren M.D. 09/14/2017 1:03 PM Dictated Date/Time: 09/14/2017 1:01 PM
--- NOTE | 2017-09-14 13:17 | DIAGNOSTIC IMAGING REPORT ---
CT OF THE ABDOMEN AND PELVIS WITH CONTRAST CLINICAL HISTORY: Testicular cancer. COMPARISON STUDY: CT of the abdomen and pelvis January 28, 2017. TECHNIQUE: Following IV administration of 91 mL of [id number]-320, axial images of the abdomen and pelvis were obtained from the lung bases to the proximal femurs. Images were reviewed in the axial, sagittal, and coronal planes. IV contrast was administered without complication. A dose lowering technique was utilized adhering to the principles of ALARA. Oral contrast was administered. FINDINGS: The chest CT will be reported separately. The liver, spleen, adrenal glands and pancreas are normal. There are multiple subcentimeter renal lesions which are too small to characterize but these are unchanged. There is no hydronephrosis. No enlarged abdominal or pelvic lymph nodes are noted. There is no biliary ductal dilatation status post cholecystectomy. There is trace pneumobilia. However wall thickness of small and large bowel are normal. The patient is status post right orchiectomy. No suspicious osseous lesions are present. IMPRESSION: No evidence of recurrent malignancy status post right orchiectomy. Electronically signed by: Sherif Corcoran M.D. 09/14/2017 1:16 PM Dictated Date/Time: 09/14/2017 1:08 PM
== END | disposition home or self-care (01) ==
LOC: C.CTS 09:09
PROVIDERS: ATTEND Nurse Practitioner Family
DX: C62.11 Malignant neoplasm of descended right testis (principal); K80.50 Calculus of bile duct without cholangitis or cholecystitis without obstruction; R74.8 Abnormal levels of other serum enzymes; E78.1 Pure hyperglyceridemia